=== PATIENT | female | born 1980 | race Caucasian/White ===

== ENCOUNTER 2020-05-07 09:23 | Emergency (ER) | payer BC, SELFPAY ==
[2020-05-07 09:33] VITALS: BP 128/85; PULSE 89; RESP 14; TEMP 36.4; O2SAT 98
[2020-05-07] MEDS: diphenhydrAMINE 25 MG CAP PO (09:38)
--- NOTE | 2020-05-07 09:38 | W.ED.GENAD ---
Discharge Plan Disposition Patient Disposition: HOME Condition: Stable Discharge Details Chief Complaint: Allergic Clinical Impression: Bug bite of face without infection Primary Care Provider: None,None ED Provider: Katherine Arce Discharge Instructions Instructions: Insect Bite or Sting (ED) Additional Instructions: May take Benadryl 1 or 2 tablets every 6-8 hours as needed for itching, also try topical Benadryl gel that you get [id number]-[id number]. And hydrocortisone cream peod-waw-cmxcyys 3 times daily. You may also try Pepcid which is also lfdr-ewb-jfwguvr. Return to the ED for any fever, drainage, or worsening swelling or any concerns. Follow up with primary care provider in 3-5 days. Return to ED sooner if any worsening or concerns. Increase oral fluids. Please take Tylenol or Ibuprofen with food every 4-6 hours as needed for pain and swelling. Medical Decision Making <Katherine Arce - Last Filed: 05/07/20 10:46> 39-year-old female presents to the ER with possible bug bite noted to her left frontal scalp. She reports that this began 2 days ago. Unknown what better. Started out approximately 0.5 cm which has now grown to approximately 2 x 3 cm. Mild pruritus no drainage no fever chills or any other symptoms. Has tried hydrocortisone cream topically and Neosporin couple days ago with little to no relief. Has not taken any Benadryl prior to arrival. We will give a Benadryl 25 mg p.o. and Pepcid 20 mg p.o. in department. This is most consistent with a bug bite patient to be discharged home with follow-up with primary care. <Gil Delgado MD - Last Filed: 05/07/20 09:50> I had a dcfc-af-pyny encounter with the patient. I evaluated the patient. I discussed case with ECHOCARDIOGRAPHY RADIOLOGY TECHNOLOGIST/PA and I reviewed ECHOCARDIOGRAPHY RADIOLOGY TECHNOLOGIST/PA note and agree with note as documented HPI <Katherine Arce - Last Filed: 05/07/20 10:46> General Mode of arrival: ambulatory. Date/Time Provider Initiated Documentation: 05/07/20 09:33. Limitations to Documentation: no limitations. Information obtained by: patient. HPI Narrative: 39-year-old female presents to the ER with possible bug bite noted to her left frontal scalp. She reports that this began 2 days ago. Unknown what better. Started out approximately 0.5 cm which has now grown to approximately 2 x 3 cm. Mild pruritus no drainage no fever chills or any other symptoms. Has tried hydrocortisone cream topically and Neosporin couple days ago with little to no relief. Has not taken any Benadryl prior to arrival. Related Data Allergies Allergy/AdvReac Type Severity Reaction Status Date / Time Penicillins AdvReac Intermediate cheeks Unverified 05/07/20 09:37 swell/get red Sulfa (Sulfonamide AdvReac Intermediate cheeks Unverified 05/07/20 09:37 Antibiotics) swell/get red erythromycin base AdvReac Mild vomits Unverified 05/07/20 09:37 [Erythromycin Base] General Stated Complaint: Allergic GERMANIA: 4 Review of Systems <Katherine Arce - Last Filed: 05/07/20 10:46> All systems reviewed & are unremarkable except as noted in HPI and below Integumentary/Breasts Skin/Breast: Reports pruritus, Reports erythema and Reports skin swelling PFSH <Katherine Arce - Last Filed: 05/07/20 10:46> Social History Smoking/Tobacco Use Status: Former Tobacco Use Alcohol Intake: current Alcohol Intake frequency: holidays/special occasions only Drug use: Never Substance use type: marijuana Do you feel safe at home: Yes Do you feel safe in your relationship?: Yes Exam <Katherine Yazmin - Last Filed: 05/07/20 10:46> Narrative Exam Narrative: Constitutional: Alert and oriented x3. Appears stated age. Normal body habitus. Head: Normocephalic, no trauma. Eyes: Pupils PERRLA, Red reflex noted, EOM's intact. Eyelids symmetrical without lesions, discharge, or swelling. ENT: Bilateral TM's WNL, External ear normal to inspection, no mastoid TTP, swelling, or erythema, Nasal turbinates WNL, no nasal discharge. Normal dentition, Posterior pharynx WNL, no exudate. Chest: RRR, Normal S1, S2, distal pulses intact. Resp: Lungs clear to auscultation bilaterally, no wheezes, rales, or rhonchi. Musculoskeletal: Normal gait, 5/5 strength to all four extremities. Skin: Has a circular maculopapular demarcated area to the left frontal scalp with a small puncture wound noted, no drainage capillary refill less than 2 sec. Course <Katherine Arce - Last Filed: 05/07/20 10:46> Vital Signs Vital signs: Vital Signs Temperature 36.4 C L 05/07/20 09:33 Pulse 89 05/07/20 09:33 Respiratory Rate 14 05/07/20 09:33 Blood Pressure 128/85 05/07/20 09:33 Pulse Oximetry 98 05/07/20 09:33 Temperature 36.4 C L 05/07/20 09:33 Temperature Source Tympanic 05/07/20 09:33 Pulse 89 05/07/20 09:33 Respiratory Rate 14 05/07/20 09:33 Respiratory Effort Non-Labored 05/07/20 09:35 Respiratory Pattern Normal 05/07/20 09:35 Blood Pressure 128/85 05/07/20 09:33 Blood Pressure Position Sitting 05/07/20 09:33 Pulse Oximetry 98 05/07/20 09:33 Oxygen Delivery Method Room Air 05/07/20 09:33 Oxygen Flow Rate 0 05/07/20 09:33 Pain Level 2 05/07/20 09:33
[2020-05-07] MEDS: Famotidine 20 MG TAB PO (10:18)
== END 2020-05-07 09:55 | disposition home or self-care (01) ==
PROVIDERS: Emergency Provider Registered Nurse Emergency
DX: S00.86XA Insect bite (nonvenomous) of other part of head, initial encounter (principal); W57.XXXA Bitten or stung by nonvenomous insect and other nonvenomous arthropods, initial encounter
CPT/HCPCS: 99283

== ENCOUNTER 2020-08-18 11:23 | Emergency (ER) | payer BC, SELFPAY ==
[2020-08-18 11:25] VITALS: BP 124/79; PULSE 107; RESP 17; TEMP 36.9; O2SAT 99
--- NOTE | 2020-08-18 11:33 | ED.GENADUL_ITS ---
Discharge Plan Disposition Patient Disposition: HOME Condition: Good Discharge Details Clinical Impression: Dental infection Primary Care Provider: None,None ED Provider: Dulce Maria Ocasio Home Meds and New Rx's Prescriptions: New clindamycin HCl 150 mg capsule 450 mg PO TID 7 Days Qty: 63 RF: 0 ondansetron 4 mg tablet,disintegrating 4 mg PO Q6H PRN (Reason: nausea and vomiting) Qty: 14 RF: 0 Discharge Instructions Instructions: Dental Abscess (ED) Additional Instructions: You have a dental infection and will need follow up with dentist. Please take the antibiotics as prescribed. Even if symptoms improve, please take the entire course. You were prescribed zofran to use if you develop nausea or vomiting. If you develop increased pain, fevers/chills, swelling or other new/worsening symptoms please seek care urgently once again. Otherwise, please call dentist tomorrow to schedule follow up appointment. Discharge Data Discharge Date/Time-TO BE ENTERED AT DEPARTURE: 08/18/20 12:07 Medical Decision Making Patient is a pleasant 39-year-old female presenting with chief complaint of left lower dental pain. She reports this began approximately 3 days ago and has consistently been worsening. 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 She denies any fevers or chills. Is not noted any swelling. On exam, patient appears nontoxic. She is tender at the #17 tooth along the buccal aspect. This tooth is decaying with fractured portion. She does not have any evidence to suggest a drainable abscess, Lesvia's angina, tonsillar abscess. She does not appear septic. Denies any headache. Plan to treat the patient with clindamycin. She has had nausea and reaction to multiple antibiotics in the past. Preventive measure, will prescribe Zofran in the event that she does develop symptoms. Return precautions were discussed with the patient. UPT was negative. List of local dentist was given, she will begin calling tomorrow to schedule follow-up appointment. All of her questions and concerns were addressed and she is to examine with plan. HPI General Mode of arrival: ambulatory . Date/Time Provider Initiated Documentation: 08/18/20 11:24 . Limitations to Documentation: no limitations . Information obtained by: patient and RN notes reviewed . History of Present Illness 39 year old F presents to the emergency department with the chief complaint of left lower dental pain, described as moderate, Quality is described as aching, and is localized to the mouth. Patient reports radiation to (toward left ear). Patient started experiencing this day(s) (3) and it has been constant. No relieving factors improve symptom(s), Eating worsens symptoms . Patient notes no other symptoms.; denies fever/chills. Patient did receive the following treatments prior to arrival, none Related Data Home Medications Medication Instructions Recorded Confirmed clindamycin HCl 450 mg PO TID 7 Days #63 cap 08/18/20 ondansetron 4 mg PO Q6H PRN #14 tab 08/18/20 Previous Rx's Medication Instructions Recorded clindamycin HCl 450 mg PO TID 7 Days #63 cap 08/18/20 ondansetron 4 mg PO Q6H PRN #14 tab 08/18/20 Allergies Allergy/AdvReac Type Severity Reaction Status Date / Time Penicillins AdvReac Intermediate cheeks Unverified 05/07/20 09:37 swell/get red Sulfa (Sulfonamide AdvReac Intermediate cheeks Unverified 05/07/20 09:37 Antibiotics) swell/get red erythromycin base AdvReac Mild vomits Unverified 05/07/20 09:37 [Erythromycin Base] General Stated Complaint: DentalOral GERMANIA: 4 Review of Systems Constitutional Constitutional: Reports as per HPI, Denies chills, Denies fever(s), Denies headache(s), Denies lethargy and Denies poor appetite Eyes Eyes: Denies change in vision ENT Ears, Nose, Mouth, and Throat: Denies dizziness and Denies headache(s) Cardiovascular Cardiovascular: Reports as per HPI, Denies dyspnea and Denies dyspnea on exertion Respiratory Respiratory: Reports as per HPI, Denies chest congestion, Denies cough, Denies pain on inspiration, Denies pain with cough, Denies dyspnea, Denies dyspnea on exertion and Denies wheezing Gastrointestinal Gastrointestinal: Reports as per HPI, Denies abdominal pain, Denies diarrhea, Denies nausea and Denies vomiting Musculoskeletal Musculoskeletal: Reports as per HPI and Denies back pain Integumentary/Breasts Skin/Breast: Reports as per HPI and Denies rash Neurologic Neurologic: Reports as per HPI, Denies dizziness and Denies headache(s) Allergic/Immunologic Allergic/Immunologic: Denies wheezing PFSH Social History Smoking/Tobacco Use Status: Former Tobacco Use Smoking risk assessment performed?: Yes Alcohol Intake: current Alcohol Intake frequency: holidays/special occasions only Drug use: Socially Substance use type: marijuana Do you feel safe at home: Yes Do you feel safe in your relationship?: Yes Exam Const General: cooperative, healthy appearing, comfortable, no acute distress and well developed Nutritional Appearance: average body habitus and well nourished Orientation: alert, awake and oriented x3 HENMT Head: normal to inspection Ears: hearing grossly normal bilaterally, external ears normal, TM's normal bilaterally, mastoids normal and no periauricular adenopathy General nose exam: external nose normal Face and sinus: normal facial exam, sinuses nontender and face symmetric Mouth: oral mucosae normal, lip normal, tongue normal, salivary ducts normal, moist mucous membranes, no muffled voice, no trismus, No restricted motion and other (no swelling under tongue) Teeth and gingiva: caries (#17 tooth, has filled cavity and small broken portion), gingiva abnormal tender (buccal side of #17 tooth); not hypertrophic, not edematous, without any purulent discharge, not erythematous and not discolored and poor dentition Throat: posterior oropharynx normal, tonsils normal and uvula midline Neck Neck: normal visual inspection and no lymphadenopathy Chest Chest: normal inspection of the chest, normal palpation of entire chest wall and no crepitus Resp Effort & Inspection: normal respiratory effort, able to speak in complete sentences and no respiratory distress Auscultation: clear to auscultation bilaterally, no rales, no rhonchi and no wheezes Cardio Rate: regular rate Rhythm: regular rhythm Heart Sounds: S1 normal and S2 normal GI Inspection: normal to inspection, no edema and non-distended Palpation: soft, no hepatosplenomegaly, not firm, no guarding, not rigid and nontender Auscultation: normal bowel sounds Back/Spine/Pelvis Back: no CVA tenderness Thoracic/Lumbar Spine: thoracic and lumbar spine normal to inspection Skin General skin exam: no rashes or lesions noted Trauma: no lacerations or abrasions Neuro General: patient alert, patient awake and patient oriented x3 Cognition: normal cognition Speech: speech normal Gait: normal gait Extrem General: normal to inspection, capillary refill normal, no pedal edema, no calf tenderness and normal gait Psych Appearance: grossly normal and well kempt Mental Status: mental status grossly normal Speech and Movement: speech and movement normal Course Vital Signs Vital signs: Vital Signs Temperature 36.9 C 08/18/20 11:25 Pulse 107 H 08/18/20 11:25 Respiratory Rate 17 08/18/20 11:25 Blood Pressure 124/79 08/18/20 11:25 Pulse Oximetry 99 08/18/20 11:25 Temperature 36.9 C 08/18/20 11:25 Temperature Source Temporal Artery Scan 08/18/20 11:25 Pulse 107 H 08/18/20 11:25 Respiratory Rate 17 08/18/20 11:25 Respiratory Effort 08/18/20 11:29 Blood Pressure 124/79 08/18/20 11:25 Blood Pressure Position Sitting 08/18/20 11:25 Pulse Oximetry 99 08/18/20 11:25 Oxygen Delivery Method Room Air 08/18/20 11:25 Oxygen Flow Rate 0 08/18/20 11:25
== END 2020-08-18 12:07 | disposition home or self-care (01) ==
PROVIDERS: Emergency Provider Physician Assistant
DX: R68.84 Jaw pain (principal); K04.7 Periapical abscess without sinus
CPT/HCPCS: 81025; 99283

== ENCOUNTER 2020-09-16 15:52 | Outpatient (REF) | payer BC, SELFPAY ==
[2020-09-16 14:57] LABS: Abs Immature Grans 0.07 10^3/uL (0.0-0.06); Absolute Basophil Count 0.09 10^3/uL (0.0-0.2); Absolute Eosinophil Count 0.26 10^3/uL (0.0-0.7); Absolute Lymphocyte Count 1.87 10^3/uL (1.2-3.4); Absolute Monocyte Count 1.01 10^3/uL (0.1-0.8); Basophils % 0.8; Eosinophils % 2.3; HCT 40.7 % (36.0-46.0); HGB 13.6 g/dL (11.2-15.7); Immature Grans % 0.6; Lymphocytes % 16.7; MCH 28.4 pg (27.0-33.0); MCHC 33.4 % (32.0-36.0); MPV 9.6 fL (8.0-11.0); Neutrophils % 70.6; Nucleated RBC 0 %; Platelet Count 374 10^3/uL (130-400); RBC 4.79 10^6/uL (3.93-5.22); RDW 12.9 % (11.7-14.6); RDW-SD 40.2 fL
[2020-09-16 14:59] LABS: Absolute Neutrophil Count 7.91 10^3/uL (1.2-6.7)
[2020-09-16 15:29] LABS: ALT 15 U/L (14-59); AST 12 U/L (15-37); Alkaline Phosphatase 47 U/L (46-116); Anion Gap 8.3 mmol/L (3-11); BUN 8 mg/dL (7-18); Bilirubin, Total 0.3 mg/dL (0.2-1.0); CO2 26.7 mmol/L (21.0-32.0); CREATININE 0.83 mg/dL (0.55-1.02); Chloride 101 mmol/L (98-107); Glucose 122 mg/dL (74-106); Potassium 4.2 mmol/L (3.5-5.1); Sodium 136 mmol/L (136-145); Total Protein 6.6 g/dL (6.4-8.2)
[2020-09-16 17:04] LABS: C Diff PCR Negative (Negative)
[2020-09-16 18:52] LABS: ESR 22 mm/hr (0-20)
[2020-09-18 22:42] LABS: Calprotectin >1000 mcg/g
[2020-09-19 10:20] LABS: Salmonella PCR Negative (Negative); Shiga Toxin PCR Negative (Negative); Shigella/Enteroinvasive Ecoli Negative (Negative)
[2020-09-19 11:48] LABS: Campylobacter PCR Negative (Negative)
== END 2020-09-16 16:12 ==
LOC: NCHCN 15:52
PROVIDERS: Visit Provider Nurse Practitioner Family
DX: R19.7 Diarrhea, unspecified (principal)
CPT/HCPCS: 80053; 85652; 87493; 87505; 83993; 85025

== ENCOUNTER 2020-09-23 11:20 | Inpatient (IN) | payer BC, SELFPAY ==
[2020-09-23] VITALS (16 sets, daily range): BP systolic 93–116; BP diastolic 56–78; PULSE 111–130; RESP 15–22; TEMP 36.6–39.5; O2SAT 96–99
--- NOTE | 2020-09-23 11:45 | DI.CT_ITS ---
EXAM: CT ABDOMEN PELVIS W CLINICAL HISTORY: abd pain. TECHNIQUE: Imaging Protocol: Axial computed tomography images with coronal and sagittal reformatted images were created and reviewed CONTRAST MATERIAL: Intravenous: Omnipaque 70cc Oral: None COMPARISON: No exams were available for comparison FINDINGS: VISUALIZED LUNG BASES: Uppermost images reveal a tiny 2 millimeter noncalcified nodule in the lateral basal segment of the left lower lobe.. No pleural effusions ABDOMEN: There is no ascites. LIVER: There is a panic steatosis. There is the benign-appearing subcapsular hypodensity in the medi al aspect of the right hepatic lobe which measures 9 x 8 millimeters, most probably a cyst or hemangi howard. No other focal hepatic findings nor dilatation of the of intrahepatic ducts. GALLBLADDER/BILIARY: Tiny density noted in the gallbladder, possibly gallstone or polyp. The gallbla dder is not distended. Phrygian cap noted. No pericholecystic fluid. CBD diameter is normal. PANCREAS: No evidence of pancreatic mass nor dilatation of the pancreatic duct. SPLEEN: Spleen is not enlarged. No obvious intrasplenic lesions. Splenic and portal veins are paten t. ADRENALS: There are no significant adrenal masses. KIDNEYS:No cysts evident. No solid renal masses. No calculi nor hydronephrosis.. ABDOMINAL AORTA: Abdominal aorta is not enlarged and there is no lewmvmrryovvazl-gabb-nqaeiu adenopat hy. ABDOMINAL WALL/GI: No evidence of significant anterior abdominal wall hernia. There is no evidence o f small-bowel obstruction. However, there is diffuse lomax colitis pattern which extends from the cecu m to the rectum, inclusive. No evidence of perforation or acute toxic megacolon. Small mesenteric l ymph nodes are noted. PELVIS: GI: No evidence of appendicitis.No evidence of sigmoid diverticulitis. LYMPH NODES: There is no intrapelvic nor inguinal adenopathy. REPRODUCTIVE: Uterus size is normal. There is a cyst in the left ovary which measures 3.4 by 2.6 álvaro timetres. Smaller cyst in the right ovary is probably follicular. URINARY BLADDER: No calculi nor obvious masses evident OSSEOUS: No lytic osseous lesions. Sacroiliac joints appear unremarkable. IMPRESSION: 1. Main finding here is a lomax colitis pattern. First consideration is for ulcerative colitis, given the extensive involvement. There is no evidence of perforation nor obvious toxic megacolon. 2. Differential diagnosis includes other reasons for pancolitis, including infectious. 3. No bowel obstruction. 4. 34 x 26 millimeter cyst in the left ovary. There are no extraovarian adnexal masses. 5. There is a tiny 2 millimeter noncalcified nodule in the left lower lobe. There are no pleural ef fusions. Results called to ER physician. RADIATION DOSE DELIVERED: 679.25mGy.cm Total DLP DATA REPOSITORY: All CT scans at this facility are submitted to the National Radiology Data Registry (NRDR) Dose Index Registry (DIR) with the [employer] ([employer]). RADIATION OPTIMIZATION: All CT scans at this facility use at least one of these dose optimization te chniques: automated exposure control; mA and/or kV adjustment per patient size (includes targeted exa ms where dose is matched to clinical indication); or iterative reconstruction.
[2020-09-23 11:49] LABS: Bilirubin Negative (Negative); Blood Moderate (Negative); Clarity Clear (Clear); Glucose Negative (Negative); Ketones Negative (Negative); Leukocyte Esterase Negative (Negative); Nitrite Negative (Negative); Specific Gravity 1.025 (1.005-1.025); Urobilinogen 0.2 EU/dL (Up TO 0.2); pH 6.5 (5-8)
--- NOTE | 2020-09-23 11:51 | ED.GENADUL_ITS ---
Discharge Plan Disposition Patient Disposition: [facility] INPATIENT Condition: Serious Discharge Details Chief Complaint: Abd Prob Clinical Impression: Pancolitis Primary Care Provider: Ro Hoffman ED Provider: Manolo Mckay Home Meds and New Rx's Prescriptions: No Action ondansetron 4 mg tablet,disintegrating 4 mg PO Q6H PRN (Reason: nausea and vomiting) Qty: 14 RF: 0 Medical Decision Making 39-year-old female, nearly a decade history of intermittent abdominal pain, nausea, bloody diarrhea, now worse over the past 6 weeks. She reports approximately 15 pound weight loss. Family history of ulcerative colitis. Seen by surgery consult the ER for further evaluation. Will obtain IV access, give IV fluids, obtain laboratories per surgery and obtain CT imaging. I was able to speak with Dr. Mayers who would like p.o. contrast as well. Heart rate is trending downward. Patient is able to tolerate p.o. contrast. White blood cell count of 13.49, platelet count 445, sodium 131, INR 1.1, creatinine 0.93 with a GFR greater than 60. CRP 5.59. Urine shows moderate blood otherwise unremarkable. Upon reevaluation patient is resting comfortably, heart rate continues to trend downward. She is able to tolerate the p.o. contrast, denies any abdominal pain or nausea. Awaiting CT imaging. CT imaging read by radiology as pancolitis from cecum to rectum, certainly could be consistent with ulcerative colitis. Case discussed with Dr. Mayers. She will write admission orders and plans to perform scope tomorrow. Patient made aware of this plan. She is agreeable and has no additional questions or concerns. Medical Records Medical records reviewed: Yes I reviewed the patient's medical records. Lab Data Lab results reviewed: Yes I reviewed the patient's lab results. Lab results narrative: Laboratory Tests Range/Units 09/23/20 09/23/20 09/23/20 11:25 11:50 11:50 WBC (4.4-10.8) 10^3/uL 13.49 H RBC (3.93-5.22) 10^6/uL 4.81 Hgb (11.2-15.7) g/dL 13.5 Hct (36.0-46.0) % 39.7 MCV (80-95) fL 82.5 MCH (27.0-33.0) pg 28.1 MCHC (32.0-36.0) % 34.0 RDW (11.7-14.6) % 12.5 Plt Count (130-400) 10^3/uL 445 H MPV (8.0-11.0) fL 9.2 Immature Gran % 0.8 Neutrophils % 62.9 Lymphocytes % 21.4 Monocytes % 13.8 Eosinophils % 0.6 Basophils % 0.5 Nucleated RBC % % 0 Absolute Neutrophils (1.2-6.7) 10^3/uL 8.49 H Absolute Lymphocytes (1.2-3.4) 10^3/uL 2.89 Absolute Monocytes (0.1-0.8) 10^3/uL 1.86 H Absolute Eosinophils (0.0-0.7) 10^3/uL 0.08 Absolute Basophils (0.0-0.2) 10^3/uL 0.07 PT (9.3-11.0) sec INR (0.9-1.1) Sodium (136-145) mmol/L 131 L Potassium (3.5-5.1) mmol/L 3.5 Chloride (98-107) mmol/L 98 Carbon Dioxide (21.0-32.0) mmol/L 24.1 Anion Gap (3-11) mmol/L 8.9 BUN (7-18) mg/dL 8 Creatinine (0.55-1.02) mg/dL 0.92 Estimated GFR/1.73 m2 (mL/min/1.73m2) >= 60.00 Glucose (74-106) mg/dL 93 Calcium (8.5-10.1) mg/dL 8.7 Total Bilirubin (0.2-1.0) mg/dL 0.4 AST (15-37) U/L 12 L ALT (14-59) U/L 12 L Alkaline Phosphatase (46-116) U/L 49 C-Reactive Protein (0.0-0.3) mg/dL 5.59 H Total Protein (6.4-8.2) g/dL 7.5 Albumin (3.4-5.0) g/dL 2.7 L Urine Color (Yellow) Yellow Urine Clarity (Clear) Clear Urine pH (5-8) 6.5 Ur Specific [place] (1.005-1.025) 1.025 Urine Protein (Negative) mg/dL 30 H Urine Ketones (Negative) mg/dL Negative Urine Blood (Negative) Moderate H Urine Nitrite (Negative) Negative Urine Bilirubin (Negative) Negative Urine Urobilinogen (Up TO 0.2) EU/dL 0.2 Ur Leukocyte Esterase (Negative) Negative Urine RBC (0-2) HPF 0-2 Urine WBC (0-5) HPF 0-2 Ur Epithelial Cells (Negative) HPF Moderate Urine Crystals (Negative) HPF Other Urine Bacteria (Negative) HPF Few Urine Casts (Negative) LPF Negative Urine Mucus (Negative) Moderate Ur Culture Indicated? No/sq. contamination Urine Glucose (Negative) mg/dL Negative Range/Units 09/23/20 11:50 WBC (4.4-10.8) 10^3/uL RBC (3.93-5.22) 10^6/uL Hgb (11.2-15.7) g/dL Hct (36.0-46.0) % MCV (80-95) fL MCH (27.0-33.0) pg MCHC (32.0-36.0) % RDW (11.7-14.6) % Plt Count (130-400) 10^3/uL MPV (8.0-11.0) fL Immature Gran % Neutrophils % Lymphocytes % Monocytes % Eosinophils % Basophils % Nucleated RBC % % Absolute Neutrophils (1.2-6.7) 10^3/uL Absolute Lymphocytes (1.2-3.4) 10^3/uL Absolute Monocytes (0.1-0.8) 10^3/uL Absolute Eosinophils (0.0-0.7) 10^3/uL Absolute Basophils (0.0-0.2) 10^3/uL PT (9.3-11.0) sec 10.9 INR (0.9-1.1) 1.1 Sodium (136-145) mmol/L Potassium (3.5-5.1) mmol/L Chloride (98-107) mmol/L Carbon Dioxide (21.0-32.0) mmol/L Anion Gap (3-11) mmol/L BUN (7-18) mg/dL Creatinine (0.55-1.02) mg/dL Estimated GFR/1.73 m2 (mL/min/1.73m2) Glucose (74-106) mg/dL Calcium (8.5-10.1) mg/dL Total Bilirubin (0.2-1.0) mg/dL AST (15-37) U/L ALT (14-59) U/L Alkaline Phosphatase (46-116) U/L C-Reactive Protein (0.0-0.3) mg/dL Total Protein (6.4-8.2) g/dL Albumin (3.4-5.0) g/dL Urine Color (Yellow) Urine Clarity (Clear) Urine pH (5-8) Ur Specific [place] (1.005-1.025) Urine Protein (Negative) mg/dL Urine Ketones (Negative) mg/dL Urine Blood (Negative) Urine Nitrite (Negative) Urine Bilirubin (Negative) Urine Urobilinogen (Up TO 0.2) EU/dL Ur Leukocyte Esterase (Negative) Urine RBC (0-2) HPF Urine WBC (0-5) HPF Ur Epithelial Cells (Negative) HPF Urine Crystals (Negative) HPF Urine Bacteria (Negative) HPF Urine Casts (Negative) LPF Urine Mucus (Negative) Ur Culture Indicated? Urine Glucose (Negative) mg/dL HPI General Mode of arrival: ambulatory . Date/Time Provider Initiated Documentation: 09/23/20 11:35 . Limitations to Documentation: no limitations . Information obtained by: patient . HPI Narrative: This is a 39-year-old female who denies significant past medical history. She has had abdominal pain intermittently for the last 8 or 9 years. This most recent episode has been going on for approximately 6 weeks, associated with nausea but no vomiting, diffuse intermittent abdominal discomfort moderate in nature but worse in the left lower quadrant, and bloody diarrhea. She was seen by Dr. Mayers today and sent to the ER for further evaluation. She denies recent travel, bad food exposure, sick contacts. She denies fever, chest pain, shortness of breath, back pain, dysuria, hematuria, weakness, black tarry stools. She actually denies any current abdominal pain. Family history of ulcerative colitis. She does admit to a weight loss of approximately 15 pounds over the past month or so. Related Data Home Medications Medication Instructions Recorded Confirmed ondansetron 4 mg PO Q6H PRN #14 tab 08/18/20 09/23/20 Previous Rx's Medication Instructions Recorded ondansetron 4 mg PO Q6H PRN #14 tab 08/18/20 Allergies Allergy/AdvReac Type Severity Reaction Status Date / Time Penicillins AdvReac Intermediate cheeks Unverified 09/23/20 11:51 swell/get red Sulfa (Sulfonamide AdvReac Intermediate cheeks Unverified 09/23/20 11:51 Antibiotics) swell/get red erythromycin base AdvReac Mild vomits Unverified 09/23/20 11:51 [Erythromycin Base] General Stated Complaint: Abd Prob GER[place]: 3 Review of Systems Constitutional Constitutional: Denies fatigue, Denies fever(s) and Denies headache(s) ENT Ears, Nose, Mouth, and Throat: Denies headache(s) and Denies neck pain Cardiovascular Cardiovascular: Denies chest pain and Denies dyspnea Respiratory Respiratory: Denies cough and Denies dyspnea Gastrointestinal Gastrointestinal: Reports abdominal pain, Denies melena, Reports hematochezia, Reports diarrhea, Reports nausea and Denies vomiting Genitourinary Genitourinary: Denies dysuria Musculoskeletal Musculoskeletal: Denies back pain and Denies neck pain Integumentary/Breasts Skin/Breast: Denies rash Neurologic Neurologic: Denies headache(s) Endocrine Endocrine: Denies fatigue PFSH Medical History Abdominal pain Amenorrhea Bloody diarrhea Dehydration LLQ abdominal mass Suprapubic pain Social History Smoking/Tobacco Use Status: Former Tobacco Use Smoking risk assessment performed?: Yes Alcohol Intake: current Alcohol Intake frequency: holidays/special occasions only Drug use: Socially Substance use type: marijuana Do you feel safe at home: Yes Do you feel safe in your relationship?: Yes Exam Const General: cooperative, healthy appearing, comfortable and no acute distress Orientation: alert, awake and oriented x3 HENMT Head: normal to inspection, normocephalic and atraumatic Eyes General: appearance normal, both eyes and all related structures Conjunctivae: conjunctivae normal Sclera: sclerae normal Neck Neck: normal visual inspection, full ROM, no meningeal signs, trachea midline and supple Resp Effort & Inspection: normal respiratory effort and able to speak in complete sentences Auscultation: clear to auscultation bilaterally Cardio Rate: tachycardic (120's) Rhythm: regular rhythm GI Inspection: normal to inspection Palpation: soft, not firm, no guarding, no pulsatile masses and tender in the LLQ (Mild); with no rebound tenderness Auscultation: normal bowel sounds Back/Spine/Pelvis Back: No back tenderness Skin General skin exam: no rashes or lesions noted Neuro General: patient alert, patient awake, moves all extremities and no focal motor deficits Cognition: normal cognition Speech: speech normal Gait: normal gait Sensory Exam: no sensory deficits noted Psych Appearance: grossly normal Mental Status: mental status grossly normal Course Vital Signs Vital signs: Vital Signs Temperature 36.6 C 09/23/20 11:30 Pulse 130 H 09/23/20 11:30 Respiratory Rate 16 09/23/20 11:30 Blood Pressure 116/78 09/23/20 11:30 Pulse Oximetry 99 09/23/20 11:30 Temperature 36.6 C 09/23/20 11:30 Temperature Source Skin 09/23/20 11:30 Pulse 130 H 09/23/20 11:30 Respiratory Rate 16 09/23/20 11:30 Respiratory Effort Non-Labored 09/23/20 11:30 Blood Pressure 116/78 09/23/20 11:30 Blood Pressure Position Supine 09/23/20 11:30 Pulse Oximetry 99 09/23/20 11:30 Pain Level 2 09/23/20 11:30 Lab/Test Results Lab/Test Results: POC Urine Test Start: 09/23/20 1 1:47 Freq: Status: Complete Protocol: Document 09/23/20 11:47 ROSIO (Rec: 09/23/20 11:47 KR [id number]) Test(Urine)-POC POC- Test(urine) Negative POC- Test(urine) Negative
[2020-09-23] MEDS: Lactated Ringers 1,000 ML 1000 ML IV (12:00)
[2020-09-23 12:05] LABS: Bacteria Few HPF (Negative); Epithelial Cells Moderate HPF (Negative); RBC 0-2 HPF (0-2); WBC 0-2 HPF (0-5)
[2020-09-23 12:06] LABS: C & S Indicated? No/Sq. Contamination; Casts Negative LPF (Negative); Crystals Other HPF (Negative); Mucus Moderate (Negative)
[2020-09-23 12:28] LABS: Abs Immature Grans 0.11 10^3/uL (0.0-0.06); Absolute Basophil Count 0.07 10^3/uL (0.0-0.2); Absolute Eosinophil Count 0.08 10^3/uL (0.0-0.7); Absolute Lymphocyte Count 2.89 10^3/uL (1.2-3.4); Absolute Monocyte Count 1.86 10^3/uL (0.1-0.8); Basophils % 0.5; Eosinophils % 0.6; HCT 39.7 % (36.0-46.0); HGB 13.5 g/dL (11.2-15.7); Immature Grans % 0.8; Lymphocytes % 21.4; MCH 28.1 pg (27.0-33.0); MCV 82.5 fL (80-95); MPV 9.2 fL (8.0-11.0); Monocytes % 13.8; Neutrophils % 62.9; Nucleated RBC 0 %; Platelet Count 445 10^3/uL (130-400); RBC 4.81 10^6/uL (3.93-5.22); RDW 12.5 % (11.7-14.6); RDW-SD 38.2 fL; WBC 13.49 10^3/uL (4.4-10.8)
[2020-09-23 12:30] LABS: Absolute Neutrophil Count 8.49 10^3/uL (1.2-6.7)
[2020-09-23 12:34] LABS: INR 1.1 (0.9-1.1); Prothrombin Time 10.9 sec (9.3-11.0)
[2020-09-23 12:41] LABS: ALT 12 U/L (14-59); AST 12 U/L (15-37); Albumin 2.7 g/dL (3.4-5.0); Alkaline Phosphatase 49 U/L (46-116); Anion Gap 8.9 mmol/L (3-11); BUN 8 mg/dL (7-18); Bilirubin, Total 0.4 mg/dL (0.2-1.0); C-Reactive Protein 5.59 mg/dL (0.0-0.3); CO2 24.1 mmol/L (21.0-32.0); CREATININE 0.92 mg/dL (0.55-1.02); Calcium 8.7 mg/dL (8.5-10.1); Chloride 98 mmol/L (98-107); Glucose 93 mg/dL (74-106); Potassium 3.5 mmol/L (3.5-5.1); Sodium 131 mmol/L (136-145); Total Protein 7.5 g/dL (6.4-8.2)
[2020-09-23] MEDS: Normal Saline 1,000 ML 1000 ML IV (13:45)
[2020-09-23] MEDS: Omnipaque 350 MG/ML 100 ML BTL IV (15:09)
[2020-09-23 16:59] LABS: C Diff PCR Negative (Negative)
[2020-09-23] MEDS: Lactated Ringers 1,000 ML 125 ML IV (17:08)
--- NOTE | 2020-09-23 17:28 | HPE_ITS ---
Date of service: 09/23/20 Time of Service: 17:28 Assessment and Plan Assessment and plan (1) Hx of colonoscopy: Status: Chronic (2) Pancolitis: Status: Acute Assessment and plan: fam Hx of UCsupportive care -labs sent/reviewed. cbc/comp/CRP CT reviewed Repeat C diff is neg will start flagyl/cipro and steriods plan Flex sig and bx in am. Risks: bleeding /infection/perforation/aspiration/anesthesia pt still c/o crampy pain- bentyl adn morphine supportive care (3) Amenorrhea: Status: Acute (4) Dehydration: Status: Acute (5) Abdominal pain: Status: Acute (6) Bloody diarrhea: Status: Acute (7) Hypoalbuminemia: Status: Acute History of Present Illness Consults Consult date: 09/23/20 Narrative: Pr states this particular episode started in mid-july. She has been having these bouts for 1-2 weeks every few months. this has been going on for at least 10 yrs Her s/s are blood in stools -BRBPR and assoc cramping. Cramping is on the L side side- mostly LLQ pain. occ will go into her back. She was able to eat breakfast today. She was on Clinda the first week of August 2020 for dental infection. This lastest episode is worse since she took the abx. Yest, pain was in the RUQ and radiated to the back. This is not the usual for her. no fever/but she has had chills. Nauseated. today she ate bananas and siddhartha crackers. she has been eating yogurt and BRAT type foods. She is able to keep liquids down. feels hungry- but that she is nauseated and can?t eat. Bowels are watery. going 10-12 times a day. +wt loss. She has lost 6#'s since she was in 's office on 09/09. lost 15 since . Currently pain is dull crampy and on left side. Her mother has UC. PGMa has UC. pt is acutely ill and clinically dehydrated. She is tachycardic and has dark urine and poor skin turger. She needs to go for fluids and zofran and labs and CT today. She had a CE she had in 2011 was nl. bx were nl. labs she had in [facility] removed- cbc/fecal calprotectin and compreviewed. WBC was elevated. They did not give her any specific treatments. She is not on abx or steriods. urine is dark/thick coat on tongue/poor skin turger. nausea still. she can keep water down. Her prior Sx are CE and . SHe had no problems w/ anethesia. +smoker. She is not normally on any.medications. She has no chronic health problems. Review of Systems All systems reviewed & are unremarkable except as noted in HPI and below PFSH Medical History (Updated 09/23/20 @ 20:33 by Melody Mayers DO) Abdominal pain Amenorrhea Bloody diarrhea Dehydration Hypoalbuminemia LLQ abdominal mass Suprapubic pain Surgical History (Updated 09/23/20 @ 20:13 by Melody Mayers DO) Hx of colonoscopy Social History Smoking/Tobacco Use Status: Former Tobacco Use Smoking risk assessment performed?: Yes Alcohol Intake: current Alcohol Intake frequency: holidays/special occasions only Drug use: Socially Substance use type: marijuana Do you feel safe at home: Yes Do you feel safe in your relationship?: Yes Meds Home Medications and Allergies Home Medications Medication Instructions Recorded Confirmed Type ondansetron 4 mg PO Q6H PRN #14 tab 08/18/20 09/23/20 Rx Allergies Allergy/AdvReac Type Severity Reaction Status Date / Time Penicillins AdvReac Intermediate cheeks Unverified 09/23/20 11:51 swell/get red Sulfa (Sulfonamide AdvReac Intermediate cheeks Unverified 09/23/20 11:51 Antibiotics) swell/get red erythromycin base AdvReac Mild vomits Unverified 09/23/20 11:51 [Erythromycin Base] Exam Const General: cooperative, healthy appearing, comfortable, no acute distress, well developed and well groomed Nutritional Appearance: average body habitus and well nourished Orientation: alert, awake and oriented x3 HENMT Head: normal to inspection, normocephalic and atraumatic Ears: hearing grossly normal bilaterally and external ears normal General nose exam: external nose normal Face and sinus: normal facial exam and sinuses nontender Mouth: oral mucosae normal, lip normal, tongue normal, moist mucous membranes abnormal and tongue abnormal Teeth and gingiva: dentition normal Eyes General: appearance normal, both eyes and all related structures Conjunctivae: conjunctivae normal Sclera: sclerae normal Pupils: PERRL Neck Neck: normal visual inspection and full ROM Chest Chest: normal inspection of the chest Resp Effort & Inspection: normal respiratory effort, able to speak in complete sentences, no cough, no nasal flaring, not tachypneic and no use of accessory muscles Auscultation: clear to auscultation bilaterally, no rales, no rhonchi and no wheezes Cardio Jugular venous pressure: no JVD Rate: tachycardic Rhythm: regular rhythm GI Inspection: normal to inspection, no edema and non-distended Palpation: soft, no masses, tender and No ascites Auscultation: hypoactive bowel sounds Other: post sx changes noted. no hernias. tender in LLQ/suprapubic region and over the IC valve. Skin General skin exam: no rashes or lesions noted Other: no joint pain or swelling Neuro General: patient alert, patient oriented x3, oriented, gait normal, moves all extremities, no focal motor deficits and CN's II-XI intact bilaterally Cognition: normal cognition Speech: speech normal Gait: normal gait Motor: muscle tone normal throughout Extrem General: normal to inspection, full ROM and no clubbing, cyanosis or edema Psych Appearance: grossly normal and well kempt Mental Status: mental status grossly normal Speech and Movement: speech and movement normal Affect: normal affect Results Labs Result diagrams: 09/23/20 11:50 09/23/20 11:50 Labs: Laboratory Results - last 24 hr 09/23/20 09/23/20 09/23/20 11:25 11:50 11:50 WBC 13.49 H RBC 4.81 Hgb 13.5 Hct 39.7 MCV 82.5 MCH 28.1 MCHC 34.0 RDW 12.5 Plt Count 445 H MPV 9.2 Immature Gran % 0.8 Neutrophils % 62.9 Lymphocytes % 21.4 Monocytes % 13.8 Eosinophils % 0.6 Basophils % 0.5 Nucleated RBC % 0 Absolute Neutrophils 8.49 H Absolute Lymphocytes 2.89 Absolute Monocytes 1.86 H Absolute Eosinophils 0.08 Absolute Basophils 0.07 PT INR Sodium 131 L Potassium 3.5 Chloride 98 Carbon Dioxide 24.1 Anion Gap 8.9 BUN 8 Creatinine 0.92 Estimated GFR/1.73 m2 >= 60.00 Glucose 93 Calcium 8.7 Total Bilirubin 0.4 AST 12 L ALT 12 L Alkaline Phosphatase 49 C-Reactive Protein 5.59 H Total Protein 7.5 Albumin 2.7 L Urine Color Yellow Urine Clarity Clear Urine pH 6.5 Ur Specific [place] 1.025 Urine Protein 30 H Urine Ketones Negative Urine Blood Moderate H Urine Nitrite Negative Urine Bilirubin Negative Urine Urobilinogen 0.2 Ur Leukocyte Esterase Negative Urine RBC 0-2 Urine WBC 0-2 Ur Epithelial Cells Moderate Urine Crystals Other Urine Bacteria Few Urine Casts Negative Urine Mucus Moderate Ur Culture Indicated? No/sq. contamination Urine Glucose Negative Stl C.difficile Tox PCR 09/23/20 09/23/20 11:50 15:50 WBC RBC Hgb Hct MCV MCH MCHC RDW Plt Count MPV Immature Gran % Neutrophils % Lymphocytes % Monocytes % Eosinophils % Basophils % Nucleated RBC % Absolute Neutrophils Absolute Lymphocytes Absolute Monocytes Absolute Eosinophils Absolute Basophils PT 10.9 INR 1.1 Sodium Potassium Chloride Carbon Dioxide Anion Gap BUN Creatinine Estimated GFR/1.73 m2 Glucose Calcium Total Bilirubin AST ALT Alkaline Phosphatase C-Reactive Protein Total Protein Albumin Urine Color Urine Clarity Urine pH Ur Specific [place] Urine Protein Urine Ketones Urine Blood Urine Nitrite Urine Bilirubin Urine Urobilinogen Ur Leukocyte Esterase Urine RBC Urine WBC Ur Epithelial Cells Urine Crystals Urine Bacteria Urine Casts Urine Mucus Ur Culture Indicated? Urine Glucose Stl C.difficile Tox PCR Negative Last Vital Signs Temp 39.5 C H 09/23/20 17:21 Pulse 125 H 09/23/20 17:21 Resp 19 09/23/20 17:21 BP 108/72 09/23/20 17:21 Pulse Ox 98 09/23/20 17:21 COVID-19 Screening Have you, or household traveled for leisure in last 14 days?: No Had IN PERSON contact w/suspected or confirmed C-19 person: No
[2020-09-23] MEDS: Hydrocortisone SOD SUC. 100 MG VIAL IVP (17:57)
[2020-09-23] MEDS: CIPROFLOXACIN 400 MG/200 ML BAG 200 MG IVPB (17:57)
[2020-09-23] MEDS: metroNIDAZOLE 500 MG/100 ML BAG 100 MG IVPB (19:58)
[2020-09-23 20:14] LABS: Bilirubin Negative (Negative); Blood Trace-intact (Negative); Clarity Clear (Clear); Glucose Negative (Negative); Ketones Negative (Negative); Leukocyte Esterase Negative (Negative); Nitrite Negative (Negative); Urobilinogen 0.2 EU/dL (Up TO 0.2)
[2020-09-23 20:27] LABS: Bacteria Negative HPF (Negative); C & S Indicated? No; Crystals Negative HPF (Negative); Epithelial Cells Few HPF (Negative); Mucus Negative (Negative); WBC Negative HPF (0-5)
[2020-09-23] MEDS: FAMOTIDINE 20 MG/50 ML BAG 200 MG IVPB (21:07)
[2020-09-24 00:59] LABS: COVID-19 RT-PCR UVMMC Result Negative (Negative)
[2020-09-24] MEDS: Hydrocortisone SOD SUC. 100 MG VIAL IVP ×3 (01:12→18:02)
[2020-09-24 01:28] VITALS: BP 105/57; PULSE 69; RESP 18; TEMP 36.1; O2SAT 93
[2020-09-24] MEDS: metroNIDAZOLE 500 MG/100 ML BAG 100 MG IVPB ×3 (03:13→19:51)
[2020-09-24] MEDS: Lactated Ringers 1,000 ML 125 ML IV ×2 (03:13→15:49)
[2020-09-24] MEDS: CIPROFLOXACIN 400 MG/200 ML BAG 200 MG IVPB ×2 (05:16→18:02)
[2020-09-24 06:58] LABS: Anion Gap 7.1 mmol/L (3-11); BUN 6 mg/dL (7-18); C-Reactive Protein 6.16 mg/dL (0.0-0.3); CO2 24.9 mmol/L (21.0-32.0); CREATININE 0.82 mg/dL (0.55-1.02); Calcium 7.9 mg/dL (8.5-10.1); Chloride 103 mmol/L (98-107); Glucose 199 mg/dL (74-106); Magnesium 1.9 mg/dL (1.8-2.4); Potassium 3.7 mmol/L (3.5-5.1); Sodium 135 mmol/L (136-145)
[2020-09-24 07:18] VITALS: BP 100/67; PULSE 89; RESP 17; TEMP 36.8; O2SAT 96
--- NOTE | 2020-09-24 10:06 | W.PM.PROGNOT ---
Documented by User: ADELIA Ny 09/24/20 10:10 Date of Service Date of service: 09/24/20 Time of Service: 10:06 Assessment and Plan Assessment and plan (1) Hx of colonoscopy: Status: Chronic (2) Pancolitis: Status: Acute Assessment and plan: fam Hx of UCsupportive care She is on flagyl/cipro and steriods Sigmoidoscopy scheduled for later this morning. Reviewed and discussed the procedure with the patient. All questions were answered to patient's satisfaction. (3) Amenorrhea: Status: Acute (4) Dehydration: Status: Acute (5) Abdominal pain: Status: Acute (6) Bloody diarrhea: Status: Acute (7) Hypoalbuminemia: Status: Acute Subjective Subjective Interval history since last seen: Patient reports that she is feeling okay this morning. Exam Const General: cooperative, healthy appearing and comfortable Orientation: alert and oriented x3 Resp Effort & Inspection: normal respiratory effort, audible wheezes and cough Objective Last Vital Signs Temp 36.8 C 09/24/20 07:18 Pulse 89 09/24/20 07:18 Resp 17 09/24/20 07:18 BP 100/67 09/24/20 07:18 Pulse Ox 96 09/24/20 07:18 Laboratory Results - last 24 hr 09/23/20 09/23/20 09/23/20 11:25 11:50 11:50 WBC 13.49 H RBC 4.81 Hgb 13.5 Hct 39.7 MCV 82.5 MCH 28.1 MCHC 34.0 RDW 12.5 Plt Count 445 H MPV 9.2 Immature Gran % 0.8 Neutrophils % 62.9 Lymphocytes % 21.4 Monocytes % 13.8 Eosinophils % 0.6 Basophils % 0.5 Nucleated RBC % 0 Absolute Neutrophils 8.49 H Absolute Lymphocytes 2.89 Absolute Monocytes 1.86 H Absolute Eosinophils 0.08 Absolute Basophils 0.07 PT INR Sodium 131 L Potassium 3.5 Chloride 98 Carbon Dioxide 24.1 Anion Gap 8.9 BUN 8 Creatinine 0.92 Estimated GFR/1.73 m2 >= 60.00 Glucose 93 Calcium 8.7 Magnesium Total Bilirubin 0.4 AST 12 L ALT 12 L Alkaline Phosphatase 49 C-Reactive Protein 5.59 H Total Protein 7.5 Albumin 2.7 L Urine Color Yellow Urine Clarity Clear Urine pH 6.5 Ur Specific [place] 1.025 Urine Protein 30 H Urine Ketones Negative Urine Blood Moderate H Urine Nitrite Negative Urine Bilirubin Negative Urine Urobilinogen 0.2 Ur Leukocyte Esterase Negative Urine RBC 0-2 Urine WBC 0-2 Ur Epithelial Cells Moderate Urine Crystals Other Urine Bacteria Few Urine Casts Negative Urine Mucus Moderate Ur Culture Indicated? No/sq. contamination Urine Glucose Negative Stl C.difficile Tox PCR SARS-CoV-2 (PCR) Nasopharyn COVID-19 PCR Ref Test Perform Site 09/23/20 09/23/20 09/23/20 11:50 15:50 16:00 WBC RBC Hgb Hct MCV MCH MCHC RDW Plt Count MPV Immature Gran % Neutrophils % Lymphocytes % Monocytes % Eosinophils % Basophils % Nucleated RBC % Absolute Neutrophils Absolute Lymphocytes Absolute Monocytes Absolute Eosinophils Absolute Basophils PT 10.9 INR 1.1 Sodium Potassium Chloride Carbon Dioxide Anion Gap BUN Creatinine Estimated GFR/1.73 m2 Glucose Calcium Magnesium Total Bilirubin AST ALT Alkaline Phosphatase C-Reactive Protein Total Protein Albumin Urine Color Urine Clarity Urine pH Ur Specific [place] Urine Protein Urine Ketones Urine Blood Urine Nitrite Urine Bilirubin Urine Urobilinogen Ur Leukocyte Esterase Urine RBC Urine WBC Ur Epithelial Cells Urine Crystals Urine Bacteria Urine Casts Urine Mucus Ur Culture Indicated? Urine Glucose Stl C.difficile Tox PCR Negative SARS-CoV-2 (PCR) Negative Nasopharyn COVID-19 PCR Not Applicable Ref Test Perform Site [place] [facility] 09/23/20 09/24/20 20:03 06:07 WBC RBC Hgb Hct MCV MCH MCHC RDW Plt Count MPV Immature Gran % Neutrophils % Lymphocytes % Monocytes % Eosinophils % Basophils % Nucleated RBC % Absolute Neutrophils Absolute Lymphocytes Absolute Monocytes Absolute Eosinophils Absolute Basophils PT INR Sodium 135 L Potassium 3.7 Chloride 103 Carbon Dioxide 24.9 Anion Gap 7.1 BUN 6 L Creatinine 0.82 Estimated GFR/1.73 m2 >= 60.00 Glucose 199 H D Calcium 7.9 L Magnesium 1.9 Total Bilirubin AST ALT Alkaline Phosphatase C-Reactive Protein 6.16 H Total Protein Albumin Urine Color Straw Urine Clarity Clear Urine pH 7.0 Ur Specific [place] 1.010 Urine Protein Negative Urine Ketones Negative Urine Blood Trace-intact H Urine Nitrite Negative Urine Bilirubin Negative Urine Urobilinogen 0.2 Ur Leukocyte Esterase Negative Urine RBC Urine WBC Negative Ur Epithelial Cells Few Urine Crystals Negative Urine Bacteria Negative Urine Casts Urine Mucus Negative Ur Culture Indicated? No Urine Glucose Negative Stl C.difficile Tox PCR SARS-CoV-2 (PCR) [place] COVID-19 PCR Ref Test Perform Site Documented by User: Melody Mayers DO 09/24/20 21:14 Assessment and Plan Assessment and plan (1) Ulcerative colitis with rectal bleeding: Status: Acute Assessment and plan: Patient seen after her colonoscopy today we did discuss the results of the findings on colonoscopy. At this point I do think she has UC. She is definitely feeling better and today she is able to tolerate full liquids. Her CRP is 6.3 today. I am going to stop the Cipro. Continue the IV steroids until her CRP starts trending down and then we can titrate down on the IV steroids and change her over to prednisone and discharge her with close follow-up. We will have her follow-up with GI down at [facility]. She is a is allergic to sulfa. Her mother is allergic to sulfa and cannot tolerate 5-ASA products. She does have pretty significant disease at this point and has been having multiple episodes a year that are starting become more severe and more frequent. So immunologic modulators are probably in her best interest. However we will have her discuss this with GI. Dr. Cohen will see her on 09/25. Her blood sugars wer were high today; we will monitor her blood glucose. I am not can start insulin at this time. Continue supportive care
--- NOTE | 2020-09-24 10:44 | BOWEL_PTH ---
PATIENT: Mari Lee LOC: [place] Kee#:[id number] AGE/SX: 40/F ROOM: RE09/23/[address]: Melody Mayers : 1980 BED: A DIS: 09/26/2020 SPEC #: [id number] RECD: 09/24/20 12:34 STATUS: ANTONETTE REJames #: [id number] KAYE: 09/24/20 10:[address]: Melody Mayers DEPT: Surgical Specimen RECD BY: Molly Ryan ENTERED: 09/24/20 12:35 SP TYPE: Bowel OTHR DR: Ro Hoffman Tissues: 1 - BIOPSY BOWEL 2 - BIOPSY BOWEL 3 - BIOPSY BOWEL Procedures: GROSS AND MICRO LEVEL 4 Comments: [id number]
--- NOTE | 2020-09-24 11:13 | W.COLOREPORT ---
Date of service: 09/24/20 Time of Service: 11:13 Colonoscopy Report Procedure Description: After informed consent was obtained the patient was taken to the procedure room and placed in a left decubitous position. Monitors were applied and a time out was done. The patients name, date of , procedure, allergies to medications and metal in their body was reviewed. The patient was then sedated. Once sedated and comfortable a rectal exam was done. External exam small external tag. the internal exam revealed a normal sphincter tone and no palpable masses. The scope was then introduced and retrofelexed. no internal hemorrhoids were identified. This was an unprepped exam. There is some mild irritation in the rectum. The scope is run from the rectum to about 30 to 40 cm. The entire colon is red and inflamed and ulcerated. The mucosa is very friable and hemorrhagic. There is significant edema of the colon wall. After 40 cm is not safe to go beyond the splenic flexure. Biopsies are taken at 30 cm 20 cm in the rectum. This does have the characteristics of ulcerative colitis. There is no anal disease. The scope was removed and the patient was woken up and taken back to Same day surgery in stable condition. The patient tolerated the procedure well and there were no immediate complications. Follow up: The patient should follow up in 1 year unless they develop changes in bowel habits or other new gastrointestinal complaints.
[2020-09-24 11:28] VITALS: BP 95/64; PULSE 82; RESP 17; TEMP 36.5; O2SAT 96
[2020-09-24] MEDS: Normal Saline Flush 10 ML SYR IVP ×3 (11:57→19:51)
[2020-09-24 12:20] VITALS: BP 95/65; PULSE 77; RESP 17; TEMP 36.7; O2SAT 97
[2020-09-24] MEDS: ACETAMINOPHEN 1,000 MG/100 ML BTL 400 MG IVPB (12:29)
--- NOTE | 2020-09-24 16:36 | PHA.REVIEW ---
Pharmacy Admission Review - Admission Clinical Review (Last Updated 09/23/20 @ 20:33 by Melody Mayers DO) Hypoalbuminemia (Acute) Pancolitis (Acute) Amenorrhea (Acute) Dehydration (Acute) Abdominal pain (Acute) Bloody diarrhea (Acute) Penicillins Adverse Reaction (Intermediate, Unverified 09/23/20 11:51) cheeks swell/get red Sulfa (Sulfonamide Antibiotics) Adverse Reaction (Intermediate, Unverified 09/23/20 11:51) cheeks swell/get red erythromycin base [Erythromycin Base] Adverse Reaction (Mild, Unverified 09/23/20 11:51) vomits Height 4 ft 11 in Weight 63.1 kg - Renal Dosing Renal Dosing: BUN 6 mg/dL (7-18) L 09/24/20 06:07 Creatinine 0.82 mg/dL (0.55-1.02) 09/24/20 06:07 Medications needing adjustments: Reviewed (Crcl ~64.1 mL/min current meds okay) - Anticoagulation Anticoagulation: Hgb 13.5 g/dL (11.2-15.7) 09/23/20 11:50 Hct 39.7 % (36.0-46.0) 09/23/20 11:50 Plt Count 445 10^3/uL (130-400) H 09/23/20 11:50 INR 1.1 (0.9-1.1) 09/23/20 11:50 Creatinine 0.82 mg/dL (0.55-1.02) 09/24/20 06:07 DVT Prohphylaxis: N/A - Opiate Usage Evaluate Pain Scale/Pains Meds: Reviewed Scheduled Bowel Reg ordered if on Opiates?: No (pt had bloody diarrhea) - Relevant Labs Sodium 135 mmol/L (136-145) L 09/24/20 06:07 Potassium 3.7 mmol/L (3.5-5.1) 09/24/20 06:07 Chloride 103 mmol/L (98-107) 09/24/20 06:07 Magnesium 1.9 mg/dL (1.8-2.4) 09/24/20 06:07 C-Reactive Protein 6.16 mg/dL (0.0-0.3) H 09/24/20 06:07 Electrolytes, C-Reactive P, ESR: Reviewed - DM Control DM Control: Glucose 199 mg/dL (74-106) H D 09/24/20 06:07 Insulin Dosing: N/A (BG elevated today, was within normal limits yesterday. No history of A1c. Watch BG.) - Heart Failure/FL EF%, MARIO's, B-Blockers, Diuretics: N/A - BP Control BP Control: Blood Pressure 95/65 Blood Pressure 95/64 Blood Pressure 100/67 If elevated: N/A (BP low to normal since admission) - Qtc Review If Elevated: N/A - IV to PO Switch IV Medications: Reviewed - Home Meds Home Med List reviewed: Reviewed Relevent Home Meds Not ordered & why?: only home med is ordered - Current meds Current Medication Order Review: Intervened ( ordered multiple meds that increased risk of QT prolongation, I talked to the provider and she discontinued the trazodone and ordered zolpidem PRN.) - Comments Comments/Follow Ups: Watch BP, BG, labs and for med changes (IV to PO). Antibiotic Activity - Pharmacy Antibiotic Review Pharmacy Antibiotic Activity: Reviewed, no change (Ciprofloxacin and metronidazole continue (day 2 starts this evening))
--- NOTE | 2020-09-24 17:57 | INITIAL_ITS ---
- If Service Date Differs Date of service: 09/24/20 Time of Service: 09:31 Care Management Initial Assess REASON FOR HOSPITALIZATION:: Ulcerative Colitis PAST MEDICAL HISTORY/PAST SURGICAL HISTORY:: Abdominal pain, amenorrhea, ulcerative colitis with rectal bleeding, LLQ abdominal mass, colonoscopy PREVIOUS FUNCTIONAL STATUS/SOCIAL/FAMILY SUPPORTS:: Mari resides with her , Manuelito in [place], [place]. She is independent at baseline in the community. CURRENT FUNCTIONAL STATUS:: Mari continues to be closely monitored; she is being treated with IV ABX and steroids and will have a Sigmoidoscopy today. She is pleasant in interaction. ADVANCE DIRECTIVES:: None on file at [facility]. Has patient been provided with info about the portal/API?: Yes Did the patient sign up for the portal?: Yes (Previously) CODE STATUS:: Full Code INSURANCE COVERAGE / FINANCIAL ISSUES:: BC/BS PRIMARY CARE PHYSICIAN:: Ro Hoffman POTENTIAL DISCHARGE NEEDS:: O/P follow up with GI at [facility], PCP follow up. PATIENT/FAMILY EDUCATION NEEDS:: Review discharge instructions, discuss Ask Me Three. ANTICIPATED BARRIERS TO DISCHARGE:: None identified. TRANSPORTATION:: Via private vehicle with her , Manuelito. PLAN:: Mari will have a Sigmoidoscopy today to inform treatment considerations, anticipate she will return home with close outpatient follow up including GI at [facility] when ready, per MD. She will transport via private vehicle with her , Manuelito.
[2020-09-24 19:49] VITALS: BP 116/80; PULSE 84; RESP 18; TEMP 37; O2SAT 96
[2020-09-25 01:38] VITALS: BP 99/67; PULSE 81; RESP 18; TEMP 36.9; O2SAT 97
[2020-09-25] MEDS: Hydrocortisone SOD SUC. 100 MG VIAL IVP ×2 (01:39→09:56)
[2020-09-25] MEDS: Normal Saline Flush 10 ML SYR IVP ×6 (01:39→21:40)
[2020-09-25] MEDS: ACETAMINOPHEN 1,000 MG/100 ML BTL 100 MG IVPB ×3 (01:39→14:11)
[2020-09-25] MEDS: metroNIDAZOLE 500 MG/100 ML BAG 100 MG IVPB ×3 (04:00→20:18)
[2020-09-25 06:57] LABS: Abs Immature Grans 0.25 10^3/uL (0.0-0.06); Absolute Basophil Count 0.04 10^3/uL (0.0-0.2); Absolute Monocyte Count 0.82 10^3/uL (0.1-0.8); Absolute Neutrophil Count 7.83 10^3/uL (1.2-6.7); Basophils % 0.4; HGB 11.4 g/dL (11.2-15.7); Immature Grans % 2.4; Lymphocytes % 14.4; MCH 27.9 pg (27.0-33.0); MCHC 33.5 % (32.0-36.0); MCV 83.3 fL (80-95); MPV 9.1 fL (8.0-11.0); Monocytes % 7.9; Neutrophils % 74.9; Nucleated RBC 0 %; Platelet Count 400 10^3/uL (130-400); RBC 4.08 10^6/uL (3.93-5.22); RDW 12.7 % (11.7-14.6); RDW-SD 38.5 fL; WBC 10.44 10^3/uL (4.4-10.8)
[2020-09-25 07:04] LABS: C-Reactive Protein 3.39 mg/dL (0.0-0.3)
[2020-09-25 07:19] VITALS: BP 111/72; PULSE 69; RESP 18; TEMP 36.9; O2SAT 97
--- NOTE | 2020-09-25 07:47 | W.PM.PROGNOT ---
Date of Service Date of service: 09/25/20 Time of Service: 07:47 Assessment and Plan Assessment and plan (1) Ulcerative colitis with rectal bleeding: Status: Acute Assessment and plan: Continue the IV steroids until her CRP starts trending down and then we can titrate down on the IV steroids and change her over to prednisone and discharge her with close follow-up She will need to follow up with GI at [facility]. CRP decreased today to 3.39 Tolerating full liquid diet at this point, will progress to soft low fiber diet. Blood glucose finger stick this morning 178. Continue supportive care Subjective Subjective Interval history since last seen: Patient reports that she is feeling well this morning. She reports tolerating the full liquid diet well without any nausea, vomiting or diarrhea. She denies having any pain at this time. Exam Const General: cooperative, healthy appearing and comfortable Orientation: alert and oriented x3 Resp Effort & Inspection: normal respiratory effort, no audible wheezes and no cough Objective Last Vital Signs Temp 36.9 C 09/25/20 07:19 Pulse 69 09/25/20 07:19 Resp 18 09/25/20 07:19 BP 111/72 09/25/20 07:19 Pulse Ox 97 09/25/20 07:19 Laboratory Results - last 24 hr 09/25/20 09/25/20 06:40 06:40 WBC 10.44 RBC 4.08 Hgb 11.4 D Hct 34.0 L MCV 83.3 MCH 27.9 MCHC 33.5 RDW 12.7 Plt Count 400 MPV 9.1 Immature Gran % 2.4 Neutrophils % 74.9 Lymphocytes % 14.4 Monocytes % 7.9 Eosinophils % 0.0 Basophils % 0.4 Nucleated RBC % 0 Absolute Neutrophils 7.83 H Absolute Lymphocytes 1.50 Absolute Monocytes 0.82 H Absolute Eosinophils 0.00 Absolute Basophils 0.04 C-Reactive Protein 3.39 H
[2020-09-25] MEDS: Dicyclomine 10 MG CAP PO ×3 (07:58→20:18)
[2020-09-25 14:31] LABS: ANA Interpretation Negative (Negative)
[2020-09-25 15:35] VITALS: BP 108/74; PULSE 79; RESP 18; TEMP 37.1; O2SAT 96
--- NOTE | 2020-09-25 15:39 | CMPROGNOTE_ITS ---
- If Service Date Differs Date of service: 09/25/20 Time of Service: 15:41 Care Management Progress Note S/O: Mari was sitting up in bed when CM met with her. She stated that she is feeling better today, but still has some pain/cramping. She stated that she has been having mild symptoms for years, but since July it has been much worse, and was a very bad day. She reported that she was sent to the ER after being seen at the Surgeon's office. Yesterday she had a colonoscopy. Today, her diet is being advanced as tolerated. Per report, she will remain at [facility] overnight, and may be ready for discharge tomorrow, if she continues to tolerate her advanced diet. CM will continue to follow. A: Mari is a 40 year old female admitted to [facility] on 09/23/19 with UC. P: Anticipate Mari will return home with no new services once medically cleared. She will follow up with [facility], her PCP and her discharge plan of care. Her will drive her home via private vehicle. CM will continue to follow.
--- NOTE | 2020-09-25 15:47 | CHAPLAIN ---
Mari was sitting up in her bed when I visited. She was pleasant and easily engaged in a conversation. She said she has two boys at home, 9 and 11, and she is not usually away from them for longs, so this has been hard. Her is caring for them, so she knows they are in good hands, she said. She's been able to talk and facetime with her family.
[2020-09-25] MEDS: predniSONE 20 MG TAB 60 MG PO (15:49)
[2020-09-25 20:30] VITALS: BP 108/71; PULSE 82; RESP 18; TEMP 36.6; O2SAT 97
[2020-09-26] MEDS: metroNIDAZOLE 500 MG/100 ML BAG 100 MG IVPB (03:24)
[2020-09-26] MEDS: Dicyclomine 10 MG CAP PO ×2 (03:24→09:51)
[2020-09-26 03:25] VITALS: BP 110/74; PULSE 63; RESP 18; TEMP 35.8; O2SAT 99
[2020-09-26] MEDS: Acetaminophen 325 MG TAB 650 MG PO (03:34)
[2020-09-26 07:09] LABS: C-Reactive Protein 1.47 mg/dL (0.0-0.3)
[2020-09-26 07:16] VITALS: BP 104/67; PULSE 78; RESP 17; TEMP 37; O2SAT 96
--- NOTE | 2020-09-26 08:24 | W.PM.PROGNOT ---
Date of Service Date of service: 09/26/20 Time of Service: 08:25 Assessment and Plan Assessment and plan (1) Ulcerative colitis with rectal bleeding: Status: Acute Assessment and plan: Pt will be discharged on oral prednisone and metronidazole with office follow up Subjective Subjective Patient reports: feels better and tolerating a regular diet Interval history since last seen: some blood, much less diahrea Exam GI Inspection: normal to inspection Palpation: soft (non tender) and other Objective Last Vital Signs Temp 98.6 F 09/26/20 07:16 Pulse 78 09/26/20 07:16 Resp 17 09/26/20 07:16 BP 104/67 09/26/20 07:16 Pulse Ox 96 09/26/20 07:16 Laboratory Results - last 24 hr 09/24/20 09/26/20 06:07 06:33 C-Reactive Protein 1.47 H DEONDRE Titer Not Applicable DEONDRE Titer 2 Not Applicable DEONDRE Titer 3 Not Applicable DEONDRE Interpretation Negative
--- NOTE | 2020-09-26 08:28 | DSE_ITS ---
Date of service: 09/26/20 Time of Service: 08:28 DS: Diagnosis Discharge Diagnosis (1) Ulcerative colitis with rectal bleeding: Status: Acute Discharge Plan Disposition Patient Disposition: HOME Condition: Improving Discharge Details Reason For Visit: UC Admit Date/Time: 09/23/20 15:41 Admit Provider: Melody Mayers Attending Provider: Melody Mayers [facility] Course: Pt was admitted 09/23 and underwent colonoscopy on 09/24 showing acute colitis consistent with UC. She was started on metronidazole and IV steroids. She had improvement of her symptoms over the next two days. She was started on oral prednisone and tolerated a regular diet. She will be discharged on a regular diet and be followed in the surgery clinic and a referral to GI at [facility] will be made. Home Meds and New Rx's Prescriptions: New prednisone 20 mg Tablet 60 mg PO DAILY Qty: 28 RF: 0 dicyclomine 10 mg Capsule 10 mg PO QID PRN PRN (Reason: Abdominal Pain) Qty: 20 RF: 0 No Action ondansetron 4 mg tablet,disintegrating 4 mg PO Q6H PRN (Reason: nausea and vomiting) Qty: 14 RF: 0 Discharge Instructions Instructions: Rectal Bleeding (DC), Ulcerative Colitis (DC) Additional Instructions: follow up wednesdaysep [address] Mayers Stand Alone Forms: Nursing Discharge Form Referrals: Melody Mayers DO [OSTEOPATHIC DOCTOR] - 09/30/20 3:00 pm Activity:: Activity as Tolerated Equipment/Supplies:: No Equipment Needed Diet:: Normal Diet Discharge Orders Discharge Orders: Discharge Order (Routine); Ordered 09/26/20 Ordered By: Daljit Randolph Discharge Data Discharge Date/Time-TO BE ENTERED AT DEPARTURE: 09/26/20 11:24 DS: Summary Status at Discharge Functional status at discharge: independent ambulation Overall status at discharge: patient is progressing back to baseline Mental Status: mental status grossly normal Speech and Movement: speech and movement normal Mood: congruent mood Affect: normal affect Time Spent with Patient providing and/or coordinating discharge services: Less than 30 minutes Exam GI Palpation: soft (non tender) Psych Mental Status: mental status grossly normal Speech and Movement: speech and movement normal Mood: congruent mood Affect: normal affect DS: Data Vitals/I&O Vitals and I&O: Vital Signs Temperature 98.6 F 09/26/20 07:16 Temperature Source Temporal Artery Scan 09/26/20 07:16 Pulse 78 09/26/20 07:16 Pulse Rhythm Regular 09/26/20 04:07 Pulse 112 H 09/23/20 16:31 Respiratory Rate 17 09/26/20 07:16 Respiratory Effort Non-Labored 09/26/20 04:07 Respiratory Depth Normal 09/26/20 04:07 Respiratory Pattern Normal 09/26/20 04:07 Blood Pressure 104/67 09/26/20 07:16 Blood Pressure Mean 64 09/23/20 16:30 Blood Pressure Position Supine 09/23/20 11:30 Pulse Oximetry 96 09/26/20 07:16 Oxygen Delivery Method Room Air 09/26/20 07:16 Oxygen Flow Rate 0 09/26/20 07:16 Pain Level 2 09/26/20 07:16 Comment 09/23/20 17:21 Intake & Output 09/25/20 09/25/20 09/26/20 11:59 23:59 11:59 Intake Total 1139.583 / 2279.583 1140 / 2279.583 210 / 210 Output Total 900 / 2500 1600 / 2500 Balance 239.583 / -220.417 -460 / -220.417 210 / 210 Intake: IV 739.583 / 949.583 210 / 949.583 10 / 10 Oral 400 / 1330 930 / 1330 200 / 200 Output: Urine 900 / 2500 1600 / 2500 Other: Urine Color Yellow Light Margaret Yellow Brown Urine Appearance Clear Clear Clear Urine Odor Normal Stool Size Small Voiding Methods Toilet Toilet Toilet Data Completed and Pending Labs on day of discharge: Labs from last 24 hours 09/26/20 09/24/20 06:33 06:07 C-Reactive Protein 1.47 H DEONDRE Titer Not Applicable DEONDRE Titer 2 Not Applicable DEONDRE Titer 3 Not Applicable DEONDRE Interpretation Negative PFSH Medical History Abdominal pain Amenorrhea Bloody diarrhea Dehydration Hypoalbuminemia LLQ abdominal mass Suprapubic pain Surgical History Hx of colonoscopy Social History Smoking/Tobacco Use Status: Former Tobacco Use Smoking risk assessment performed?: Yes Alcohol Intake: current Alcohol Intake frequency: holidays/special occasions only Drug use: Socially Substance use type: marijuana Do you feel safe at home: Yes Do you feel safe in your relationship?: Yes
[2020-09-26] MEDS: predniSONE 20 MG TAB 60 MG PO (08:42)
--- NOTE | 2020-09-26 09:59 | W.PM.DS.N ---
Date of service: 09/26/20 Time of Service: 08:28 DS: Diagnosis Discharge Diagnosis (1) Ulcerative colitis with rectal bleeding: Status: Acute Discharge Plan Disposition Patient Disposition: HOME Condition: Improving Discharge Details Reason For Visit: UC Admit Date/Time: 09/23/20 15:41 Admit Provider: Melody Mayers Attending Provider: Melody Mayers [facility] Course: Pt was admitted 09/23 and underwent colonoscopy on 09/24 showing acute colitis consistent with UC. She was started on metronidazole and IV steroids. She had improvement of her symptoms over the next two days. She was started on oral prednisone and tolerated a regular diet. She will be discharged on a regular diet and be followed in the surgery clinic and a referral to GI at [facility] will be made. Home Meds and New Rx's Prescriptions: New prednisone 20 mg Tablet 60 mg PO DAILY Qty: 28 RF: 0 dicyclomine 10 mg Capsule 10 mg PO QID PRN PRN (Reason: Abdominal Pain) Qty: 20 RF: 0 No Action ondansetron 4 mg tablet,disintegrating 4 mg PO Q6H PRN (Reason: nausea and vomiting) Qty: 14 RF: 0 Discharge Instructions Additional Instructions: follow up wednesdaysep [address] Mayers Stand Alone Forms: Nursing Discharge Form Activity:: Activity as Tolerated Equipment/Supplies:: No Equipment Needed Diet:: Normal Diet Discharge Orders Discharge Orders: Discharge Order (Routine); Ordered 09/26/20 Ordered By: Daljit Randolph DS: Summary Status at Discharge Functional status at discharge: independent ambulation Overall status at discharge: patient is back to baseline Mental Status: mental status grossly normal Speech and Movement: speech and movement normal Mood: congruent mood Affect: normal affect Exam Psych Mental Status: mental status grossly normal Speech and Movement: speech and movement normal Mood: congruent mood Affect: normal affect DS: Data Vitals/I&O Vitals and I&O: Vital Signs Temperature 98.6 F 09/26/20 07:16 Temperature Source Temporal Artery Scan 09/26/20 07:16 Pulse 78 09/26/20 07:16 Pulse Rhythm Regular 09/26/20 08:35 Pulse 112 H 09/23/20 16:31 Respiratory Rate 17 09/26/20 07:16 Respiratory Effort Non-Labored 09/26/20 08:35 Respiratory Depth Normal 09/26/20 08:35 Respiratory Pattern Normal 09/26/20 08:35 Blood Pressure 104/67 09/26/20 07:16 Blood Pressure Mean 64 09/23/20 16:30 Blood Pressure Position Supine 09/23/20 11:30 Pulse Oximetry 96 09/26/20 07:16 Oxygen Delivery Method Room Air 09/26/20 07:16 Oxygen Flow Rate 0 09/26/20 07:16 Pain Level 2 09/26/20 07:16 Comment 09/23/20 17:21 Intake & Output 09/25/20 09/25/20 09/26/20 11:59 23:59 11:59 Intake Total 1139.583 / 2279.583 1140 / 2279.583 210 / 210 Output Total 900 / 2500 1600 / 2500 Balance 239.583 / -220.417 -460 / -220.417 210 / 210 Intake: IV 739.583 / 949.583 210 / 949.583 10 / 10 Oral 400 / 1330 930 / 1330 200 / 200 Output: Urine 900 / 2500 1600 / 2500 Other: Urine Color Yellow Light Margaret Yellow Brown Urine Appearance Clear Clear Clear Urine Odor Normal Stool Size Small Moderate Stool Characteristics Soft Formed Voiding Methods Toilet Toilet Toilet Data Completed and Pending Labs on day of discharge: Labs from last 24 hours 09/26/20 09/24/20 06:33 06:07 C-Reactive Protein 1.47 H DEONDRE Titer Not Applicable DEONDRE Titer 2 Not Applicable DEONDRE Titer 3 Not Applicable DEONDRE Interpretation Negative PFSH Medical History (Updated 09/24/20 @ 18:33 by Melody Mayers DO) Abdominal pain Amenorrhea Bloody diarrhea Dehydration Hypoalbuminemia LLQ abdominal mass Suprapubic pain Surgical History (Updated 09/23/20 @ 20:13 by Melody Mayers DO) Hx of colonoscopy Social History Smoking/Tobacco Use Status: Former Tobacco Use Smoking risk assessment performed?: Yes Alcohol Intake: current Alcohol Intake frequency: holidays/special occasions only Drug use: Socially Substance use type: marijuana Do you feel safe at home: Yes Do you feel safe in your relationship?: Yes
--- NOTE | 2020-09-26 10:49 | PDOC.CMDIS ---
LACE Index Scoring Tool - Questions: Length of Stay (in days): 3 Acuity (Admit via E.D.?): Yes E.D. Visits: 3 - Answers: Total Score: 9 Risk of Readmission: Low Risk Care Management Discharge Reason for Hospitalization: Ulcerative Colitis Discharge Plan: Mari will return home when medically cleared, per MD. She will follow up with [facility], her PCP and her discharge plan of care. Her will drive her home via private vehicle. Patient/Family Education Needs: Review discharge instructions, discuss Ask Me Three.
[2020-09-26 12:29] LABS: Campylobacter PCR Negative (Negative); Salmonella PCR Negative (Negative); Shiga Toxin PCR Negative (Negative); Shigella/Enteroinvasive Ecoli Negative (Negative)
== END 2020-09-26 11:24 | disposition home or self-care (01) | DRG 387 ==
LOC: ER 15:47 → MS 17:00
PROVIDERS: Admitting Provider Surgery; Emergency Provider Physician Assistant; PCP Nurse Practitioner Family; Visit Provider Surgery
PROC: 0DJD8ZZ Inspection of Lower Intestinal Tract, Via Natural or Artificial Opening Endoscopic (ICD-10-PCS; CPT 45378; principal; 2020-09-24 09:30)
DX: K51.311 Ulcerative (chronic) rectosigmoiditis with rectal bleeding (principal); E86.0 Dehydration; E88.09 Other disorders of plasma-protein metabolism, not elsewhere classified; N91.2 Amenorrhea, unspecified
CPT/HCPCS: 45331; 36415; 80048; 80053; 81025; 87493; 87505; 88305; 96360; 96361; 99285; U0003; 74177; 81003; 81015; 83735; 85025; 85610; 86038; 86140; J0131; J0744; J1720; J2001; J3490; J7512

== ENCOUNTER 2020-09-23 11:31 | Outpatient (REF) | payer BC, SELFPAY ==
[2020-09-23 11:40] LABS: Abs Immature Grans 0.11 10^3/uL (0.0-0.06); HCT 38.5 % (36.0-46.0); MCH 28.3 pg (27.0-33.0); MCHC 33.8 % (32.0-36.0); MCV 83.7 fL (80-95); MPV 9.2 fL (8.0-11.0); Nucleated RBC 0 %; Platelet Count 415 10^3/uL (130-400); RDW 12.4 % (11.7-14.6); RDW-SD 37.9 fL; WBC 13.75 10^3/uL (4.4-10.8)
[2020-09-23 11:45] LABS: INR 1.1 (0.9-1.1); Prothrombin Time 10.8 sec (9.3-11.0)
[2020-09-23 11:49] LABS: ALT 13 U/L (14-59); AST 12 U/L (15-37); Albumin 2.5 g/dL (3.4-5.0); Alkaline Phosphatase 46 U/L (46-116); Anion Gap 8.2 mmol/L (3-11); BUN 8 mg/dL (7-18); Bilirubin, Total 0.4 mg/dL (0.2-1.0); C-Reactive Protein 5.33 mg/dL (0.0-0.3); CO2 23.8 mmol/L (21.0-32.0); CREATININE 0.84 mg/dL (0.55-1.02); Calcium 8.6 mg/dL (8.5-10.1); Chloride 99 mmol/L (98-107); Glucose 101 mg/dL (74-106); Potassium 3.8 mmol/L (3.5-5.1); Sodium 131 mmol/L (136-145); Total Protein 7.1 g/dL (6.4-8.2)
[2020-09-23 11:52] LABS: Absolute Eosinophil Count 0.14 10^3/uL (0.0-0.7); Absolute Lymphocyte Count 2.48 10^3/uL (1.2-3.4); Absolute Monocyte Count 2.06 10^3/uL (0.1-0.8); Absolute Neutrophil Count 9.08 10^3/uL (1.2-6.7); Atypical Lymphocytes % 3; Bands % 16
[2020-09-23 11:53] LABS: Diff Comment Manual Differential; RBC Morphology Normal
[2020-09-23 16:20] LABS: HCG Qual (Urine) Negative
[2020-09-24 15:17] LABS: ANCA Interpretation Negative (Negative)
== END 2020-09-23 11:51 ==
LOC: LBN 11:31
PROVIDERS: PCP Nurse Practitioner Family; Visit Provider Surgery
DX: R10.9 Unspecified abdominal pain (principal); R19.7 Diarrhea, unspecified; E86.0 Dehydration; R10.2 Pelvic and perineal pain; R19.04 Left lower quadrant abdominal swelling, mass and lump
CPT/HCPCS: 80053; 86255; 81003; 81025; 85025; 85610; 86140

== ENCOUNTER 2020-11-20 04:34 | Outpatient (CLI) | payer BC, SELFPAY ==
[2020-11-20 16:16] LABS: Abs Immature Grans 0.06 10^3/uL (0.0-0.06); Absolute Basophil Count 0.06 10^3/uL (0.0-0.2); Absolute Eosinophil Count 0.11 10^3/uL (0.0-0.7); Absolute Lymphocyte Count 3.02 10^3/uL (1.2-3.4); Absolute Monocyte Count 0.77 10^3/uL (0.1-0.8); Absolute Neutrophil Count 7.29 10^3/uL (1.2-6.7); Basophils % 0.5; HCT 40.6 % (36.0-46.0); HGB 13.5 g/dL (11.2-15.7); Immature Grans % 0.5; Lymphocytes % 26.7; MCH 27.8 pg (27.0-33.0); MCHC 33.3 % (32.0-36.0); MCV 83.7 fL (80-95); MPV 9.9 fL (8.0-11.0); Monocytes % 6.8; Neutrophils % 64.5; Nucleated RBC 0 %; Platelet Count 338 10^3/uL (130-400); RBC 4.85 10^6/uL (3.93-5.22); RDW 14.2 % (11.7-14.6); RDW-SD 43.3 fL; WBC 11.31 10^3/uL (4.4-10.8)
[2020-11-20 17:00] LABS: ALT 20 U/L (14-59); AST 11 U/L (15-37); Albumin 3.6 g/dL (3.4-5.0); Alkaline Phosphatase 61 U/L (46-116); Anion Gap 10.4 mmol/L (3-11); BUN 15 mg/dL (7-18); Bilirubin, Total 0.3 mg/dL (0.2-1.0); C-Reactive Protein 0.18 mg/dL (0.0-0.3); CO2 25.6 mmol/L (21.0-32.0); CREATININE 0.7 mg/dL (0.55-1.02); Calcium 9.1 mg/dL (8.5-10.1); Chloride 103 mmol/L (98-107); Glucose 83 mg/dL (74-106); Sodium 139 mmol/L (136-145); Total Protein 7.4 g/dL (6.4-8.2)
[2020-11-21 08:55] LABS: Hepatitis B Surface Ab Positive (See Note)
[2020-11-21 09:03] LABS: Hepatitis B Surface Ag Negative (Negative)
[2020-11-21 09:54] LABS: Hep B Core Antibody Negative (Negative)
[2020-11-25 15:29] LABS: TB Interpretation Negative (Negative); TB1 Ag minus Nil 0.02 IU/ml
== END 2020-11-20 04:35 | disposition home or self-care (01) ==
LOC: LBO 04:34
PROVIDERS: PCP Nurse Practitioner Family; Visit Provider Internal Medicine Gastroenterology
DX: K51.011 Ulcerative (chronic) pancolitis with rectal bleeding (principal)
CPT/HCPCS: 36415; 80053; 86704; 86706; 87340; 85025; 86140; 86480

== ENCOUNTER 2020-12-09 02:18 | Outpatient (CLI) | payer BC, SELFPAY ==
--- NOTE | 2020-12-09 | DI.MAMMO_ITS ---
EXAM: MG MAMMO SCREENING CLINICAL HISTORY: SCREENING, Z12.31. TECHNIQUE: Bilateral full field digital CC and MLO mammographic images were obtained with 3D tomosyn thesis and utilizing computer aided detection (CAD). COMPARISON: None. This is a baseline mammogram on a 40-year-old patient FINDINGS: Fibroglandular tissue is moderately dense, this decreasing the sensitivity mammogram for finding hidd en underlying lesions. There are no obvious spiculated masses nor malignant appearing microcalcification groups. There is no significant architectural distortion nor skin thickening-retraction. IMPRESSION: Moderately dense fibroglandular tissue. No obvious radiographic evidence of malignancy. BI-RADS Category 1 - Negative Breast Density - Category C - Heterogeneously dense Breast density Category C or D implies that the patient has dense breast tissue. Dense breast tissue can make it harder to find cancer on a mammogram. Dense breast tissue is also associated with an incr eased risk of breast cancer. This information about the result of the mammogram report was provided to the patient to raise their awareness. Use this report when you speak with the patient about their risks for breast cancer, which includes their family history. At that time, you may recommend additional screening tests (Ultrasoun d or MRI) as these tests may add significant information. A negative radiographic report should not delay biopsy if a dominant or clinically suspicious mass is present. Up to ten percent of cancers are not identified on mammography. A negative report may reinforce clinical impression. Adenosis and dense breasts may obscure an underlying neoplasm. False positive reports average 6 to 10%. Patient will receive a letter notifying them of these results.
== END 2020-12-09 02:38 ==
PROVIDERS: PCP Nurse Practitioner Family; Visit Provider Physician Assistant
DX: Z12.31 Encounter for screening mammogram for malignant neoplasm of breast (principal)
CPT/HCPCS: 77063; 77067

== ENCOUNTER 2020-12-09 18:55 | Outpatient (REF) | payer BC, SELFPAY ==
[2020-12-09 19:27] LABS: Calculated LDL 95 mg/dL (<100); Cholesterol 169 mg/dL (<200); HDL Cholesterol 57 mg/dL (40-60); TSH 1.36 uIU/mL (0.36-3.74); Triglyceride 85 mg/dL (<150)
[2020-12-09 19:42] LABS: FREE T4 0.95 ng/dL (0.76-1.46)
[2020-12-10 17:36] LABS: FSH 20.1 mIU/mL (See Note); Prolactin 19.7 ng/mL (See Table)
== END 2020-12-09 18:56 | disposition home or self-care (01) ==
LOC: NCHCN 18:55
PROVIDERS: PCP Nurse Practitioner Family; Visit Provider Physician Assistant
DX: N91.2 Amenorrhea, unspecified (principal); K51.90 Ulcerative colitis, unspecified, without complications; Z13.220 Encounter for screening for lipoid disorders
CPT/HCPCS: 80061; 83001; 83002; 84146; 84439; 84443

== ENCOUNTER 2020-12-23 08:26 | Outpatient (REF) | payer BC, SELFPAY ==
--- NOTE | 2020-12-23 08:30 | PAPFT_PTH ---
PATIENT: Mari Lee LOC: [facility]#:[id number] AGE/SX: 40/F ROOM: RE12/23/[address]: Waqar Quintero : 1980 BED: DIS: 12/23/2020 SPEC #: [id number] RECD: 12/23/20 18:03 STATUS: ANTONETTE REJames #: [id number] KAYE: 12/23/20 08:[address]: Waqar Quintero DEPT: [facility] Cytology RECD BY: Molly Ryan ENTERED: 12/23/20 18:04 SP TYPE: PAPFT OTHR DR: Ro Hoffman Tissues: 1 - CX/ENDOCX FOR PAP SMEARS Procedures: PAP THIN PREP/UVM Screening Comments: [id number] (UNSATISFACTORY FOR EVALUATION)
== END 2020-12-23 08:27 | disposition home or self-care (01) ==
LOC: NCHCN 08:26
PROVIDERS: PCP Nurse Practitioner Family; Visit Provider Physician Assistant
DX: Z00.00 Encounter for general adult medical examination without abnormal findings (principal); Z12.4 Encounter for screening for malignant neoplasm of cervix; Z11.51 Encounter for screening for human papillomavirus (HPV); R87.615 Unsatisfactory cytologic smear of cervix
CPT/HCPCS: 88142

== ENCOUNTER 2020-12-30 04:13 | Outpatient (CLI) | payer BC, SELFPAY ==
[2020-12-30 10:16] LABS: Abs Immature Grans 0.05 10^3/uL (0.0-0.06); Absolute Basophil Count 0.04 10^3/uL (0.0-0.2); Absolute Eosinophil Count 0.09 10^3/uL (0.0-0.7); Absolute Monocyte Count 0.78 10^3/uL (0.1-0.8); Basophils % 0.3; Eosinophils % 0.7; HCT 39.8 % (36.0-46.0); HGB 13.3 g/dL (11.2-15.7); Immature Grans % 0.4; Lymphocytes % 20.3; MCH 27.7 pg (27.0-33.0); MCHC 33.4 % (32.0-36.0); MCV 82.9 fL (80-95); Monocytes % 6.1; Neutrophils % 72.2; Nucleated RBC 0 %; Platelet Count 312 10^3/uL (130-400); RDW 13.9 % (11.7-14.6); WBC 12.74 10^3/uL (4.4-10.8)
[2020-12-30 10:25] LABS: Absolute Lymphocyte Count 2.59 10^3/uL (1.2-3.4)
[2020-12-30 11:41] LABS: ALT 18 U/L (14-59); AST 11 U/L (15-37); Albumin 3.3 g/dL (3.4-5.0); Alkaline Phosphatase 60 U/L (46-116); Bilirubin, Direct 0.1 mg/dL (0.0-0.2); Bilirubin, Total 0.2 mg/dL (0.2-1.0); C-Reactive Protein 0.08 mg/dL (0.0-0.3); Total Protein 6.8 g/dL (6.4-8.2)
== END 2020-12-30 04:14 | disposition home or self-care (01) ==
LOC: LBO 04:13
PROVIDERS: PCP Nurse Practitioner Family; Visit Provider Internal Medicine Gastroenterology
DX: K51.011 Ulcerative (chronic) pancolitis with rectal bleeding (principal)
CPT/HCPCS: 36415; 80076; 85025; 86140

== ENCOUNTER 2021-01-14 03:22 | Outpatient (CLI) | payer BC, SELFPAY ==
[2021-01-14 15:43] LABS: Abs Immature Grans 0.02 10^3/uL (0.0-0.06); Absolute Basophil Count 0.05 10^3/uL (0.0-0.2); Absolute Eosinophil Count 0.08 10^3/uL (0.0-0.7); Absolute Lymphocyte Count 2.72 10^3/uL (1.2-3.4); Absolute Neutrophil Count 6.18 10^3/uL (1.2-6.7); Basophils % 0.5; Eosinophils % 0.8; HCT 38.8 % (36.0-46.0); Immature Grans % 0.2; Lymphocytes % 27.9; MCH 27.7 pg (27.0-33.0); MCHC 33.5 % (32.0-36.0); MCV 82.7 fL (80-95); MPV 9.6 fL (8.0-11.0); Monocytes % 7.2; Neutrophils % 63.4; Nucleated RBC 0 %; Platelet Count 295 10^3/uL (130-400); RBC 4.69 10^6/uL (3.93-5.22); RDW 13.4 % (11.7-14.6); RDW-SD 40.1 fL; WBC 9.75 10^3/uL (4.4-10.8)
[2021-01-14 17:03] LABS: ALT 18 U/L (14-59); AST 13 U/L (15-37); Albumin 3.6 g/dL (3.4-5.0); Alkaline Phosphatase 58 U/L (46-116); Bilirubin, Direct 0.1 mg/dL (0.0-0.2); Bilirubin, Total 0.3 mg/dL (0.2-1.0); C-Reactive Protein 0.08 mg/dL (0.0-0.3); Total Protein 6.9 g/dL (6.4-8.2)
== END 2021-01-14 03:23 | disposition home or self-care (01) ==
LOC: LBO 03:22
PROVIDERS: PCP Nurse Practitioner Family; Visit Provider Internal Medicine Gastroenterology
DX: K51.011 Ulcerative (chronic) pancolitis with rectal bleeding (principal)
CPT/HCPCS: 36415; 80076; 85025; 86140

== ENCOUNTER 2021-02-18 02:55 | Outpatient (CLI) | payer BC, SELFPAY ==
[2021-02-18 15:52] LABS: Abs Immature Grans 0.04 10^3/uL (0.0-0.06); Absolute Eosinophil Count 0.11 10^3/uL (0.0-0.7); Absolute Lymphocyte Count 3.53 10^3/uL (1.2-3.4); Absolute Monocyte Count 0.94 10^3/uL (0.1-0.8); Absolute Neutrophil Count 6.47 10^3/uL (1.2-6.7); Basophils % 0.4; HGB 14.1 g/dL (11.2-15.7); Immature Grans % 0.4; Lymphocytes % 31.7; MCH 28.5 pg (27.0-33.0); MCHC 34.4 % (32.0-36.0); MCV 82.8 fL (80-95); MPV 9.6 fL (8.0-11.0); Monocytes % 8.4; Neutrophils % 58.1; Nucleated RBC 0 %; Platelet Count 309 10^3/uL (130-400); RBC 4.95 10^6/uL (3.93-5.22); RDW 13.4 % (11.7-14.6); RDW-SD 40.6 fL; WBC 11.14 10^3/uL (4.4-10.8)
[2021-02-18 16:05] LABS: Absolute Basophil Count 0.04 10^3/uL (0.0-0.2)
[2021-02-18 16:46] LABS: ALT 17 U/L (14-59); AST 13 U/L (15-37); Albumin 3.6 g/dL (3.4-5.0); Alkaline Phosphatase 58 U/L (46-116); Bilirubin, Direct 0.1 mg/dL (0.0-0.2); Bilirubin, Total 0.2 mg/dL (0.2-1.0); C-Reactive Protein 0.11 mg/dL (0.0-0.3); Total Protein 7.1 g/dL (6.4-8.2)
[2021-02-20 16:03] LABS: Adalimumab QN with Reflex Ab 17.9 mcg/mL
== END 2021-02-18 02:56 | disposition home or self-care (01) ==
LOC: LBO 02:55
PROVIDERS: PCP Nurse Practitioner Family; Visit Provider Internal Medicine Gastroenterology
DX: K51.011 Ulcerative (chronic) pancolitis with rectal bleeding (principal); Z79.899 Other long term (current) drug therapy
CPT/HCPCS: 36415; 80076; 83520; 85025; 86140

== ENCOUNTER 2021-03-04 11:14 | Outpatient (REF) | payer BC, SELFPAY ==
[2021-03-05 20:54] LABS: Calprotectin <15.6 mcg/g
== END 2021-03-04 11:15 | disposition home or self-care (01) ==
LOC: LBN 11:14
PROVIDERS: PCP Nurse Practitioner Family; Visit Provider Nurse Practitioner Adult Health
DX: K51.011 Ulcerative (chronic) pancolitis with rectal bleeding (principal)
CPT/HCPCS: 87493; 83993

== ENCOUNTER 2021-03-18 03:23 | Outpatient (CLI) | payer BC, SELFPAY ==
[2021-03-18 11:46] LABS: Abs Immature Grans 0.01 10^3/uL (0.0-0.06); Absolute Basophil Count 0.06 10^3/uL (0.0-0.2); Absolute Eosinophil Count 0.12 10^3/uL (0.0-0.7); Absolute Lymphocyte Count 2.84 10^3/uL (1.2-3.4); Absolute Monocyte Count 0.65 10^3/uL (0.1-0.8); Absolute Neutrophil Count 4.96 10^3/uL (1.2-6.7); Basophils % 0.7; Eosinophils % 1.4; HCT 42.8 % (36.0-46.0); HGB 14.5 g/dL (11.2-15.7); Immature Grans % 0.1; Lymphocytes % 32.9; MCH 28.7 pg (27.0-33.0); MCHC 33.9 % (32.0-36.0); MCV 84.6 fL (80-95); MPV 9.8 fL (8.0-11.0); Monocytes % 7.5; Neutrophils % 57.4; Nucleated RBC 0 %; Platelet Count 291 10^3/uL (130-400); RBC 5.06 10^6/uL (3.93-5.22); RDW 13.4 % (11.7-14.6); RDW-SD 41.6 fL; WBC 8.64 10^3/uL (4.4-10.8)
[2021-03-18 12:35] LABS: ALT 19 U/L (14-59); AST 14 U/L (15-37); Albumin 3.9 g/dL (3.4-5.0); Alkaline Phosphatase 48 U/L (46-116); Bilirubin, Direct 0.1 mg/dL (0.0-0.2); Bilirubin, Total 0.5 mg/dL (0.2-1.0); C-Reactive Protein 0.08 mg/dL (0.0-0.3); Total Protein 7.4 g/dL (6.4-8.2)
[2021-03-19 20:40] LABS: Adalimumab QN with Reflex Ab 17.8 mcg/mL
== END 2021-03-18 03:24 | disposition home or self-care (01) ==
LOC: LBO 03:24
PROVIDERS: PCP Nurse Practitioner Family; Visit Provider Internal Medicine Gastroenterology
DX: K51.011 Ulcerative (chronic) pancolitis with rectal bleeding (principal); Z79.899 Other long term (current) drug therapy
CPT/HCPCS: 36415; 80076; 83520; 85025; 86140

== ENCOUNTER 2021-04-18 03:33 | Outpatient (CLI) | payer BC, SELFPAY ==
[2021-04-18 15:29] LABS: Abs Immature Grans 0.02 10^3/uL (0.0-0.06); Absolute Basophil Count 0.03 10^3/uL (0.0-0.2); Absolute Eosinophil Count 0.22 10^3/uL (0.0-0.7); Absolute Lymphocyte Count 3.09 10^3/uL (1.2-3.4); Absolute Monocyte Count 0.73 10^3/uL (0.1-0.8); Absolute Neutrophil Count 4.98 10^3/uL (1.2-6.7); Basophils % 0.3; Eosinophils % 2.4; HCT 41.9 % (36.0-46.0); Immature Grans % 0.2; Lymphocytes % 34.1; MCH 28.5 pg (27.0-33.0); MCHC 33.4 % (32.0-36.0); MCV 85.3 fL (80-95); MPV 9.9 fL (8.0-11.0); Nucleated RBC 0 %; Platelet Count 305 10^3/uL (130-400); RBC 4.91 10^6/uL (3.93-5.22); RDW 13.1 % (11.7-14.6); RDW-SD 40.8 fL; WBC 9.07 10^3/uL (4.4-10.8)
[2021-04-18 16:55] LABS: ALT 20 U/L (14-59); AST 13 U/L (15-37); Albumin 3.8 g/dL (3.4-5.0); Alkaline Phosphatase 46 U/L (46-116); Bilirubin, Direct 0.1 mg/dL (0.0-0.2); Bilirubin, Total 0.3 mg/dL (0.2-1.0); Total Protein 7.1 g/dL (6.4-8.2)
[2021-04-18 16:56] LABS: C-Reactive Protein < 0.05 mg/dL (0.0-0.3)
[2021-04-21 16:20] LABS: Adalimumab QN with Reflex Ab 14.8 mcg/mL
== END 2021-04-18 03:34 | disposition home or self-care (01) ==
LOC: LBO 03:33
PROVIDERS: PCP Nurse Practitioner Family; Visit Provider Internal Medicine Gastroenterology
DX: K51.011 Ulcerative (chronic) pancolitis with rectal bleeding (principal); Z79.899 Other long term (current) drug therapy
CPT/HCPCS: 36415; 80076; 83520; 85025; 86140

== ENCOUNTER 2021-05-22 15:39 | Outpatient (REF) | payer BC, SELFPAY ==
--- NOTE | 2021-05-22 15:00 | PAPFT_PTH ---
PATIENT: Mari Lee LOC: [facility] U#:[id number] AGE/SX: 40/F ROOM: RE05/22/[address]: CAL Motley : 1980 BED: DIS: 05/22/2021 SPEC #: [id number] RECD: 05/22/21 18:08 STATUS: ANTONETTE REQ #: [id number] KAYE: 05/22/21 15:[address]: Anna Cuevas DEPT: [facility] Cytology RECD BY: Molly Ryan ENTERED: 05/22/21 18:09 SP TYPE: PAPFT OTHR DR: Ro Hoffman Tissues: 1 - CX/ENDOCX FOR PAP SMEARS Procedures: PAP THIN PREP/UVM Screening HPV DNA PROBE Comments: [id number]
== END 2021-05-22 15:40 | disposition home or self-care (01) ==
LOC: LBN 15:39
PROVIDERS: PCP Nurse Practitioner Family; Visit Provider Nurse Practitioner Family
DX: Z12.4 Encounter for screening for malignant neoplasm of cervix (principal); Z11.51 Encounter for screening for human papillomavirus (HPV)
CPT/HCPCS: 88142; 87624

== ENCOUNTER 2021-10-17 04:40 | Outpatient (CLI) | payer BC, SELFPAY ==
[2021-10-17 12:39] LABS: Abs Immature Grans 0.02 10^3/uL (0.0-0.06); Absolute Basophil Count 0.07 10^3/uL (0.0-0.2); Absolute Eosinophil Count 0.19 10^3/uL (0.0-0.7); Absolute Lymphocyte Count 3.32 10^3/uL (1.2-3.4); Absolute Monocyte Count 0.76 10^3/uL (0.1-0.8); Absolute Neutrophil Count 4.36 10^3/uL (1.2-6.7); Basophils % 0.8; Eosinophils % 2.2; HCT 42.2 % (36.0-46.0); HGB 14.3 g/dL (11.2-15.7); Immature Grans % 0.2; Lymphocytes % 38.1; MCH 29.1 pg (27.0-33.0); MCHC 33.9 % (32.0-36.0); MCV 85.8 fL (80-95); Monocytes % 8.7; Nucleated RBC 0 %; Platelet Count 260 10^3/uL (130-400); RBC 4.92 10^6/uL (3.93-5.22); RDW-SD 40.7 fL; WBC 8.72 10^3/uL (4.4-10.8)
[2021-10-17 12:55] LABS: ALT 50 U/L (14-59); AST 29 U/L (15-37); Alkaline Phosphatase 54 U/L (46-116); Bilirubin, Direct 0.1 mg/dL (0.0-0.2); Bilirubin, Total 0.4 mg/dL (0.2-1.0); C-Reactive Protein 0.09 mg/dL (0.0-0.3); Total Protein 7.3 g/dL (6.4-8.2)
[2021-10-22 16:01] LABS: Adalimumab QN with Reflex Ab 28.1 mcg/mL
== END 2021-10-17 04:41 | disposition home or self-care (01) ==
LOC: LBO 04:40
PROVIDERS: PCP Nurse Practitioner Family; Visit Provider Internal Medicine Gastroenterology
DX: K51.011 Ulcerative (chronic) pancolitis with rectal bleeding (principal); Z79.899 Other long term (current) drug therapy
CPT/HCPCS: 36415; 80076; 83520; 85025; 86140

== ENCOUNTER 2021-10-29 15:59 | Outpatient (REF) | payer BC, SELFPAY ==
[2021-11-03 12:38] LABS: Calprotectin <50.0 mcg/g
== END 2021-10-29 16:00 | disposition home or self-care (01) ==
LOC: LBN 15:59
PROVIDERS: PCP Nurse Practitioner Family; Visit Provider Internal Medicine Gastroenterology
DX: K51.011 Ulcerative (chronic) pancolitis with rectal bleeding (principal); Z79.899 Other long term (current) drug therapy
CPT/HCPCS: 83993

== ENCOUNTER → 2022-03-18 01:04 | Outpatient (CLI) | payer BC, SELFPAY ==
--- NOTE | 2022-03-18 | DI.MAMMO_ITS ---
Exam(s) MAMMO SCREENING EXAM: MAMMO SCREENING CLINICAL HISTORY: SCREENING, Z12.31 TECHNIQUE: Mammograms were interpreted according to the usual protocol including computer analysis w [employer] CAD system, tomosynthesis and C-view imaging. COMPARISON: FINDINGS: The breasts are heterogeneously dense. No dominant mass or clumped microcalcification is identified in either breast. The current examination is compared with previous examinations including November and there has been no gross interval change in appearance in comparison with the prior studies. IMPRESSION: No specific evidence of malignancy at this time. Routine screening examinations are suggested at yea rly intervals in this age group according to the ACR guidelines. BI-RADS Category 1 - Negative Breast Density - Category C - Heterogeneously dense
== END ==
PROVIDERS: PCP Nurse Practitioner Family; Visit Provider Physician Assistant
DX: Z12.31 Encounter for screening mammogram for malignant neoplasm of breast (principal)
CPT/HCPCS: 77063; 77067

== ENCOUNTER 2022-03-19 02:36 | Outpatient (CLI) | payer BC, SELFPAY ==
[2022-03-19 16:00] LABS: Abs Immature Grans 0.04 10^3/uL (0.0-0.06); Absolute Basophil Count 0.05 10^3/uL (0.0-0.2); Absolute Eosinophil Count 0.25 10^3/uL (0.0-0.7); Absolute Lymphocyte Count 3.28 10^3/uL (1.2-3.4); Absolute Monocyte Count 0.79 10^3/uL (0.1-0.8); Absolute Neutrophil Count 5.52 10^3/uL (1.2-6.7); Basophils % 0.5; Eosinophils % 2.5; HCT 41.2 % (36.0-46.0); HGB 14.3 g/dL (11.2-15.7); Immature Grans % 0.4; MCH 29.2 pg (27.0-33.0); MCHC 34.7 % (32.0-36.0); MCV 84 fL (80-95); MPV 9.8 fL (8.0-11.0); Neutrophils % 55.6; Platelet Count 249 10^3/uL (130-400); RDW 12.4 % (11.7-14.6); RDW-SD 37.7 fL; WBC 9.93 10^3/uL (4.4-10.8)
[2022-03-19 16:14] LABS: ALT 25 U/L (14-59); AST 20 U/L (15-37); Albumin 3.7 g/dL (3.4-5.0); Alkaline Phosphatase 47 U/L (46-116); Bilirubin, Direct 0.1 mg/dL (0.0-0.2); Bilirubin, Total 0.2 mg/dL (0.2-1.0); C-Reactive Protein 0.05 mg/dL (0.0-0.3); Total Protein 7.3 g/dL (6.4-8.2)
== END 2022-03-19 02:37 | disposition home or self-care (01) ==
PROVIDERS: PCP Nurse Practitioner Family; Visit Provider Internal Medicine Gastroenterology
DX: K51.011 Ulcerative (chronic) pancolitis with rectal bleeding (principal); Z79.899 Other long term (current) drug therapy
CPT/HCPCS: 36415; 80076; 85025; 86140

== ENCOUNTER 2022-09-08 02:19 | Outpatient (CLI) | payer BC, SELFPAY ==
[2022-09-08 15:53] LABS: Abs Immature Grans 0.05 10^3/uL (0.0-0.06); Absolute Basophil Count 0.05 10^3/uL (0.0-0.2); Absolute Eosinophil Count 0.18 10^3/uL (0.0-0.7); Absolute Lymphocyte Count 3.45 10^3/uL (1.2-3.4); Absolute Neutrophil Count 7.47 10^3/uL (1.2-6.7); Basophils % 0.4; Eosinophils % 1.5; HCT 41.4 % (36.0-46.0); HGB 14.4 g/dL (11.2-15.7); Immature Grans % 0.4; Lymphocytes % 28.3; MCH 29.3 pg (27.0-33.0); MCHC 34.8 % (32.0-36.0); MCV 84 fL (80-95); MPV 9.9 fL (8.0-11.0); Monocytes % 8.2; Neutrophils % 61.2; Platelet Count 236 10^3/uL (130-400); RBC 4.92 10^6/uL (3.93-5.22); RDW 12.8 % (11.7-14.6); RDW-SD 38.7 fL
[2022-09-08 16:48] LABS: ALT 22 U/L (14-59); AST 22 U/L (15-37); Albumin 3.9 g/dL (3.4-5.0); Alkaline Phosphatase 59 U/L (46-116); Bilirubin, Direct 0.1 mg/dL (0.0-0.2); Bilirubin, Total 0.4 mg/dL (0.2-1.0); Total Protein 7.6 g/dL (6.4-8.2)
[2022-09-08 16:52] LABS: C-Reactive Protein < 0.05 mg/dL (0.0-0.3)
== END 2022-09-08 02:20 | disposition home or self-care (01) ==
LOC: LBO 02:19
PROVIDERS: PCP Nurse Practitioner Family; Visit Provider Internal Medicine Gastroenterology
DX: K51.011 Ulcerative (chronic) pancolitis with rectal bleeding (principal); Z79.899 Other long term (current) drug therapy
CPT/HCPCS: 36415; 80076; 85025; 86140

== ENCOUNTER 2023-03-08 04:30 | Outpatient (CLI) | payer BC, SELFPAY ==
[2023-03-08 14:24] LABS: Abs Immature Grans 0.02 10^3/uL (0.0-0.06); Absolute Basophil Count 0.06 10^3/uL (0.0-0.2); Absolute Eosinophil Count 0.35 10^3/uL (0.0-0.7); Absolute Lymphocyte Count 3.36 10^3/uL (1.2-3.4); Absolute Neutrophil Count 4.36 10^3/uL (1.2-6.7); Basophils % 0.7; HCT 40.6 % (36.0-46.0); HGB 14.3 g/dL (11.2-15.7); Immature Grans % 0.2; MCH 29.2 pg (27.0-33.0); MCHC 35.2 % (32.0-36.0); MCV 83 fL (80-95); MPV 10.1 fL (8.0-11.0); Monocytes % 7.9; Neutrophils % 49.2; Platelet Count 241 10^3/uL (130-400); RDW 12.6 % (11.7-14.6); RDW-SD 38.8 fL; WBC 8.85 10^3/uL (4.4-10.8)
[2023-03-08 14:44] LABS: Hemoglobin A1C 5.5 % (<5.7)
[2023-03-08 15:03] LABS: ALT 28 U/L (14-59); AST 21 U/L (15-37); Albumin 3.6 g/dL (3.4-5.0); Alkaline Phosphatase 60 U/L (46-116); Bilirubin, Direct 0.1 mg/dL (0.0-0.2); Bilirubin, Total 0.4 mg/dL (0.2-1.0); C-Reactive Protein 0.23 mg/dL (0.0-0.3); Total Protein 7.4 g/dL (6.4-8.2)
== END 2023-03-08 04:31 | disposition home or self-care (01) ==
LOC: LBO 04:30
PROVIDERS: PCP Physician Assistant; Visit Provider Internal Medicine Gastroenterology
DX: K51.011 Ulcerative (chronic) pancolitis with rectal bleeding (principal); Z13.1 Encounter for screening for diabetes mellitus
CPT/HCPCS: 36415; 80076; 83036; 85025; 86140

== ENCOUNTER 2023-03-19 14:49 | Outpatient (REF) | payer BC, SELFPAY | END 2023-03-19 14:50 | disposition home or self-care (01) | LOC: LBN 14:49 | PROVIDERS: PCP Physician Assistant; Visit Provider Physician Assistant Medical | DX: J02.9 Acute pharyngitis, unspecified (principal) | CPT/HCPCS: 87070 ==

== ENCOUNTER 2023-11-22 05:05 | Outpatient (CLI) | payer BC, SELFPAY ==
[2023-11-22 14:15] LABS: Abs Immature Grans 0.05 10^3/uL (0.0-0.06); Absolute Basophil Count 0.04 10^3/uL (0.0-0.2); Absolute Eosinophil Count 0.27 10^3/uL (0.0-0.7); Absolute Lymphocyte Count 3.32 10^3/uL (1.2-3.4); Absolute Monocyte Count 0.74 10^3/uL (0.1-0.8); Basophils % 0.4; Eosinophils % 2.5; HCT 40.6 % (36.0-46.0); HGB 14.1 g/dL (11.2-15.7); Immature Grans % 0.5; Lymphocytes % 30.4; MCH 28.9 pg (27.0-33.0); MCHC 34.7 % (32.0-36.0); MCV 83 fL (80-95); MPV 9.9 fL (8.0-11.0); Monocytes % 6.8; Neutrophils % 59.4; Platelet Count 235 10^3/uL (130-400); RBC 4.88 10^6/uL (3.93-5.22); RDW 12.6 % (11.7-14.6); RDW-SD 38.4 fL; WBC 10.92 10^3/uL (4.4-10.8)
[2023-11-22 14:23] LABS: Absolute Neutrophil Count 6.49 10^3/uL (1.2-6.7)
[2023-11-22 14:29] LABS: ALT 31 U/L (14-59); AST 21 U/L (15-37); Albumin 3.5 g/dL (3.4-5.0); Alkaline Phosphatase 59 U/L (46-116); Bilirubin, Direct 0.1 mg/dL (0.0-0.2); Bilirubin, Total 0.3 mg/dL (0.2-1.0); Total Protein 7.1 g/dL (6.4-8.2)
[2023-11-22 14:49] LABS: C-Reactive Protein < 0.50 mg/dL (<or=0.5)
== END 2023-11-22 05:06 | disposition home or self-care (01) ==
PROVIDERS: PCP Physician Assistant; Visit Provider Internal Medicine Gastroenterology
DX: K51.011 Ulcerative (chronic) pancolitis with rectal bleeding (principal)
CPT/HCPCS: 36415; 80076; 85025; 86140

== ENCOUNTER → 2023-11-23 14:46 | Outpatient (CLI) | payer BC, SELFPAY ==
--- NOTE | 2023-11-23 | DI.RAD_ITS ---
Exam(s) XR ANKLE LT COMPLETE EXAM: XR ANKLE LT COMPLETE CLINICAL HISTORY: M25.572 Pain in left ankle and Jnts TECHNIQUE: 2D digital imaging was performed of the left ankle. Three images were obtained. AP, lat eral and oblique views were obtained. COMPARISON: No exams were available for comparison FINDINGS: BONES: No acute fracture is present. No bony destructive lesion is seen. JOINTS:The ankle mortise is normally aligned. SOFT TISSUE: Normal. IMPRESSION: No acute fracture or dislocation. DATA REPOSITORY: RADIATION DOSE DELIVERED:
== END ==
PROVIDERS: PCP Physician Assistant; Visit Provider Nurse Practitioner Family
DX: M25.572 Pain in left ankle and joints of left foot (principal)
CPT/HCPCS: 73610

== ENCOUNTER 2024-01-28 01:55 | Outpatient (CLI) | payer BC, SELFPAY ==
[2024-01-28 14:59] LABS: Abs Immature Grans 0.04 10^3/uL (0.0-0.06); Absolute Basophil Count 0.04 10^3/uL (0.0-0.2); Absolute Eosinophil Count 0.25 10^3/uL (0.0-0.7); Absolute Monocyte Count 0.91 10^3/uL (0.1-0.8); Basophils % 0.4 %; Eosinophils % 2.3 %; HCT 41.7 % (36.0-46.0); HGB 14.3 g/dL (11.2-15.7); Immature Grans % 0.4 %; Lymphocytes % 31.5 %; MCHC 34.3 % (32.0-36.0); MCV 85 fL (80-95); MPV 9.9 fL (8.0-11.0); Monocytes % 8.4 %; Platelet Count 246 10^3/uL (130-400); RBC 4.93 10^6/uL (3.93-5.22); RDW 12.8 % (11.7-14.6); RDW-SD 39.4 fL; WBC 10.81 10^3/uL (4.4-10.8)
[2024-01-28 15:02] LABS: Absolute Lymphocyte Count 3.41 10^3/uL (1.2-3.4); Absolute Neutrophil Count 6.16 10^3/uL (1.2-6.7)
[2024-01-28 15:54] LABS: ALT 26 U/L (14-59); AST 17 U/L (15-37); Albumin 3.6 g/dL (3.4-5.0); Alkaline Phosphatase 57 U/L (46-116); Bilirubin, Direct 0.1 mg/dL (0.0-0.2); Bilirubin, Total 0.3 mg/dL (0.2-1.0); C-Reactive Protein < 0.50 mg/dL (<or=0.5); Total Protein 7.4 g/dL (6.4-8.2)
[2024-02-02 13:05] LABS: Adalimumab QN with Reflex Ab 17.6 mcg/mL
== END 2024-01-28 01:56 | disposition home or self-care (01) ==
PROVIDERS: PCP Physician Assistant; Visit Provider Internal Medicine Gastroenterology
DX: K51.011 Ulcerative (chronic) pancolitis with rectal bleeding (principal); Z79.620 Long term (current) use of immunosuppressive biologic
CPT/HCPCS: 36415; 80076; 83520; 85025; 86140

== ENCOUNTER 2024-10-04 02:14 | Outpatient (CLI) | payer BC, SELFPAY ==
--- NOTE | 2024-10-04 | DI.MAMMO_ITS ---
Exam(s) MAMMO SCREENING EXAM: MAMMO SCREENING CLINICAL HISTORY: Screening, Z12.31 TECHNIQUE: Mammograms were interpreted according to the usual protocol including computer analysis w [employer] CAD system, tomosynthesis and C-view imaging. COMPARISON: 2020 and 2021 FINDINGS: The breasts are composed of scattered fibroglandular densities, Breast Density category B. No suspicious masses or suspicious microcalcifications are seen. No skin thickening or abnormal axillary lymph nodes are seen. There has been no significant change from prior exams. IMPRESSION: BI-RADS Category 1, Negative mammogram Yearly screening mammography is recommended. Breast Density - Category B, scattered fibroglandular densities. A negative radiographic report should not delay biopsy if a dominant or clinically suspicious mass is present. Up to ten percent of cancers are not identified on mammography. A negative report may reinforce clinical impression. Adenosis and dense breasts may obscure an underlying neoplasm. False positive reports average 6 to 10%. Patient will receive a letter notifying them of these results.
== END 2024-10-04 02:34 ==
LOC: DI 02:14
PROVIDERS: PCP Physician Assistant; Visit Provider Physician Assistant
DX: Z12.31 Encounter for screening mammogram for malignant neoplasm of breast (principal); R92.323 Mammographic fibroglandular density, bilateral breasts
CPT/HCPCS: 77063; 77067

== ENCOUNTER 2024-10-04 03:26 | Outpatient (CLI) | payer BC, SELFPAY ==
[2024-10-04 15:55] LABS: Abs Immature Grans 0.02 10^3/uL (0.0-0.06); Absolute Basophil Count 0.06 10^3/uL (0.0-0.2); Absolute Eosinophil Count 0.22 10^3/uL (0.0-0.7); Absolute Lymphocyte Count 3.78 10^3/uL (1.2-3.4); Absolute Monocyte Count 0.88 10^3/uL (0.1-0.8); Absolute Neutrophil Count 5.63 10^3/uL (1.2-6.7); Basophils % 0.6 %; Eosinophils % 2.1 %; HCT 45.7 % (36.0-46.0); HGB 15.6 g/dL (11.2-15.7); Immature Grans % 0.2 %; Lymphocytes % 35.7 %; MCH 28.7 pg (27.0-33.0); MCHC 34.1 % (32.0-36.0); MCV 84 fL (80-95); MPV 9.9 fL (8.0-11.0); Monocytes % 8.3 %; Neutrophils % 53.1 %; Platelet Count 271 10^3/uL (130-400); RBC 5.43 10^6/uL (3.93-5.22); RDW-SD 39.8 fL; WBC 10.59 10^3/uL (4.4-10.8)
[2024-10-04 16:30] LABS: ALT 31 U/L (14-59); AST 20 U/L (15-37); Alkaline Phosphatase 64 U/L (46-116); Bilirubin, Direct 0.1 mg/dL (0.0-0.2); Bilirubin, Total 0.32 mg/dL (0.2-1.0); Total Protein 8.1 g/dL (6.4-8.2)
[2024-10-04 16:34] LABS: C-Reactive Protein < 0.50 mg/dL (<or=0.5)
== END 2024-10-04 03:27 | disposition home or self-care (01) ==
LOC: LBO 03:26
PROVIDERS: PCP Physician Assistant; Visit Provider Internal Medicine Gastroenterology
DX: K51.011 Ulcerative (chronic) pancolitis with rectal bleeding (principal)
CPT/HCPCS: 36415; 80076; 85025; 86140

== ENCOUNTER 2025-09-10 13:23 | Outpatient (CLI) | payer BC, SELFPAY ==
[2025-09-10 12:44] LABS: Abs Immature Grans 0.02 10^3/uL (0.0-0.06); HCT 43.1 % (36.0-46.0); HGB 14.5 g/dL (11.2-15.7); Immature Grans % 0.2 %; MCH 27.6 pg (27.0-33.0); MCHC 33.6 % (32.0-36.0); MCV 82 fL (80-95); MPV 10.2 fL (8.0-11.0); Platelet Count 259 10^3/uL (130-400); RBC 5.26 10^6/uL (3.93-5.22); RDW 12.4 % (11.7-14.6); RDW-SD 37.3 fL; WBC 9.70 10^3/uL (4.4-10.8)
[2025-09-10 14:20] LABS: ALT 24 U/L (10-49); AST 21 U/L (<34); Albumin 4.1 g/dL (3.2-5.0); Alkaline Phosphatase 66 U/L (46-116); Bilirubin, Direct 0.1 mg/dL (<=0.3); Bilirubin, Total 0.4 mg/dL (0.2-1.2); C-Reactive Protein < 0.50 mg/dL (<=0.50); Total Protein 7.4 g/dL (5.7-8.2)
== END 2025-09-10 13:24 | disposition home or self-care (01) ==
LOC: LBO 13:24
PROVIDERS: PCP Physician Assistant; Visit Provider Internal Medicine Gastroenterology
DX: K51.011 Ulcerative (chronic) pancolitis with rectal bleeding (principal)
CPT/HCPCS: 36415; 80076; 85025; 86140